=== PATIENT | female | born 1975 | race Caucasian/White ===

== ENCOUNTER → 2016-11-21 | Outpatient (REF) | payer BC ==
[~2016-11-21] MED LIST: /ESOM40CA PO; ACET500C PO; AMBI5TAB PO; AMIT50TA PO; ATEN25TA PO; MULTIVIT PO; TUMS500C PO; VITA2000 PO
== END ==
LOC: M SFHCWAGY 10:38
PROVIDERS: ATTEND Nurse Practitioner Family
DX: R87.615 Unsatisfactory cytologic smear of cervix (principal)

== ENCOUNTER → 2016-11-21 | Outpatient (CLI) | payer BC ==
--- NOTE | 2016-11-21 11:32 | REP ---
REASON: Menorrhagia. COMPARISON: 09/05/2010 Transvesical and transvaginal imaging was performed. The uterus measures 7.3 x 3.1 x 3.9 cm. The parenchymal echopattern is within normal limits, essentially unchanged from the prior exam. The endometrial echocomplex is smooth and unremarkable appearing measuring 5 mm in thickness. Incidental note is made of a nabothian cyst. Right ovary measures 3.1 x 1.3 x 2.6 cm and is within normal limits with an RI of 0.48. The left ovary measures 2 x 1.1 x 2.2 cm and is within normal limits with an RI of 0.57. Urinary bladder measures 6 x 9 x 3 cm. IMPRESSION: Essentially unremarkable pelvic ultrasonography.
== END ==
LOC: M WHC 09:34
PROVIDERS: ATTEND Nurse Practitioner Family
DX: N92.0 Excessive and frequent menstruation with regular cycle (principal)

== ENCOUNTER → 2017-01-14 | Outpatient (REF) | payer BC | LOC: M LAB REF 16:44 | PROVIDERS: ATTEND Internal Medicine Medical Oncology | DX: C18.9 Malignant neoplasm of colon, unspecified (principal) ==

== ENCOUNTER → 2019-05-14 | Outpatient (CLI) | payer BC ==
[~2019-05-14] MED LIST changes: -/ESOM40CA PO; +ACET-839 PO; +AMBI10TA PO; +MULTCAP PO; +NEXI1CAP3 PO; +NEXI40GR PO
--- NOTE | 2019-05-14 15:48 | REPMRS ---
Patient History The patient states she had a clinical breast exam in 04/2019. Patient has history of colorectal cancer at age 35 and is nulliparous. Family history of breast cancer in maternal aunt, colorectal cancer at age 60 in paternal uncle. No Hormone Replacement Therapy Digital Woman Screen Mammo: May 14, 2019 - Exam #: [id number] Bilateral CC and MLO view(s) were taken. Technologist: Nabila Cartagena, Technologist Prior study comparison: September 12, 2016, digital woman screen mammo performed at [facility]. September 05, 2010, digital bilateral screening mammo performed at [facility]. FINDINGS: The breast tissue is almost entirely fat. There has been no change in the appearance of the mammogram from the prior studies. There is no interval development of dominant mass, architectural distortion, or grouped microcalcification typical of malignancy. 3-D tomosynthesis shows no additional findings. Assessment: BI-RADS/ACR category 1 mammogram. Negative Mammogram. Recommendation Routine screening mammogram of both breasts in 1 year (for women over age 40). This patient's Lifetime Breast Cancer RIsk is estimated at 19.5 %. This mammogram was interpreted with the aid of an FDA-approved computer-aided dectection system. Electronically Signed By: Hair Eaton MD 05/14/19 [id number]
== END ==
LOC: M WHC 13:50
PROVIDERS: ATTEND Nurse Practitioner Family
DX: Z12.31 Encounter for screening mammogram for malignant neoplasm of breast (principal); Z85.038 Personal history of other malignant neoplasm of large intestine

== ENCOUNTER → 2019-05-14 | Outpatient (REF) | payer BC ==
[2019-05-19 14:29] LABS: HPV HYBRID CAPTURE II Negative (Negative)
== END ==
LOC: M SFHCWAGY 14:23
PROVIDERS: ATTEND Nurse Practitioner Family
DX: Z12.4 Encounter for screening for malignant neoplasm of cervix (principal)
CPT/HCPCS: 87624; G0123

== ENCOUNTER 2019-06-18 11:10 | Day surgery (SDC) | payer BC ==
[~2019-06-18] VITALS: Ht 170.2 cm; Wt 100.2 kg
[~2019-06-18 11:10] MED LIST changes: +NS 1,000 ML IV ONE
[2019-06-18] MEDS ORDERED: PROPOFOL 200 MG/20 ML VIAL As Ordered ONE (12:43)
[2019-06-18 14:06] VITALS: BP 143/74
--- NOTE | 2019-06-18 14:31 | ROOR ---
Patient Name: Laura Mcpherson Procedure Date: 06/18/2019 1:12 PM Date of : 1975 Age: 44 Room: [facility] Gender: Female Note Status: Finalized Procedure: Colonoscopy Indications: High risk colon cancer surveillance: Personal history of colon cancer, Last colonoscopy: January 2016, Patient had a sigmoid colectomy for cancer in 06/2011. Providers: Maulik Moon MD Referring MD: Kenny Quintanilla MD Requesting Provider: Medicines: Monitored Anesthesia Care Complications: No immediate complications. Procedure: Pre-Anesthesia Assessment: - Prior to the procedure, a History and Physical was performed, and patient medications and allergies were reviewed. The patient is competent. The risks and benefits of the procedure and the sedation options and risks were discussed with the patient. All questions were answered and informed consent was obtained. Patient identification and proposed procedure were verified by the physician, the nurse and the anesthesiologist in the procedure room. Mental Status Examination: alert and oriented. CV Examination: regular rate and rhythm. Prophylactic Antibiotics: The patient does not require prophylactic antibiotics. Prior Anticoagulants: The patient has taken no previous anticoagulant or antiplatelet agents. ASA Grade Assessment: II - A patient with mild systemic disease. After reviewing the risks and benefits, the patient was deemed in satisfactory condition to undergo the procedure. The anesthesia plan was to use monitored anesthesia care (MAC). Immediately prior to administration of medications, the patient was re-assessed for adequacy to receive sedatives. The heart rate, respiratory rate, oxygen saturations, blood pressure, adequacy of pulmonary ventilation, and response to care were monitored throughout the procedure. The physical status of the patient was re-assessed after the procedure. The Colonoscope was introduced through the anus and advanced to the cecum, identified by appendiceal orifice and ileocecal valve. The colonoscopy was performed without difficulty. The patient tolerated the procedure well. The quality of the bowel preparation was excellent. Findings: The perianal and digital rectal examinations were normal. There was evidence of a prior functional end-to-end colo-rectal anastomosis at 15 cm proximal to the anus. This was patent and was characterized by several kim in the bowel wall with some surrounding raised tissue. This was in the blind end of the rectum. This was biopsied with a cold forceps for histology. The exam was otherwise without abnormality. Impression: - Patent functional end-to-end colo-rectal anastomosis, characterized by several kim in the bowel wall with some surrounding raised tissue. Biopsied. - The examination was otherwise normal. Recommendation: - Discharge patient to home. - Resume previous diet. - Continue present medications. - Await pathology results. - Repeat colonoscopy in 3 years for surveillance. Maulik Moon MD Maulik Moon MD 06/18/2019 2:31:19 PM Electronically signed by Maulik Moon MD Number of Addenda: 0 Note Initiated On: 06/18/2019 1:12 PM Estimated Blood Loss: Estimated blood loss was minimal.
== END 2019-06-18 14:34 | disposition home or self-care (01) ==
LOC: M OPP 11:10
PROVIDERS: ATTEND Surgery
DX: Z12.11 Encounter for screening for malignant neoplasm of colon (principal); Z85.038 Personal history of other malignant neoplasm of large intestine; Z79.899 Other long term (current) drug therapy; Z88.1 Allergy status to other antibiotic agents; Z88.2 Allergy status to sulfonamides; Z88.8 Allergy status to other drugs, medicaments and biological substances

== ENCOUNTER → 2019-08-18 | Outpatient (REF) | payer BC ==
[~2019-08-18] MED LIST changes: -NS 1,000 ML IV ONE
== END ==
LOC: M LAB REF 17:24
PROVIDERS: ATTEND Family Medicine
DX: Z85.038 Personal history of other malignant neoplasm of large intestine (principal)

== ENCOUNTER → 2020-08-24 | Outpatient (REF) | payer BC | LOC: M LAB REF 16:18 | PROVIDERS: ATTEND Family Medicine | DX: Z85.038 Personal history of other malignant neoplasm of large intestine (principal) ==

== ENCOUNTER → 2020-08-29 | Outpatient (CLI) | payer SELFPAY | LOC: M LABSMTC 15:19 | PROVIDERS: ATTEND Pediatrics | DX: Z20.828 Contact with and (suspected) exposure to other viral communicable diseases (principal) ==

== ENCOUNTER 2020-10-07 12:08 | Emergency (ER) | payer BC ==
[~2020-10-07] VITALS: Ht 170.2 cm; Wt 101.7 kg
--- OUTSIDE RECORDS SUMMARY | 2020-10-07 12:15 | CCD | Continuity of Care Document ---
Author Author Laura QUINTANILLA M.D. Organization Unknown Address [address] [facility] [address] [place] [address] Phone [phone] Care Team Providers Care Global Technical Writer Name Role Phone Kenny Quintanilla MD [facility] [phone] Problems Active Problems Provider Date Malignant tumor of colon Onset: 00 Major depressive disorder Onset: 0 000 Insomnia Onset: Gastroesophageal reflux disease Onset: 0 Social History Type Date Description Comments Sex Unknown ETOH Use Denies alcohol use Tobacco Use Start: Unknown Patient has never smoked Allergies, Adverse Reactions, Alerts Active Allergies Reaction Severity Comments Date Sulfa light headed 03/15/2015 Levaquin upset stomach 03/15/2015 Medications Active Medications SIG Qnty Indications Ordering Provide r Date Amitriptyline HCL 75mg Tablets take one tablet by mouth at bedtime 90tabs Kenny Quintanilla M.D. 08/24/2020 Zyrtec Allergy 10mg Tablets 1 by mouth every bed time 30tabs R09.81 Kenny Quintanilla M.D. 07/23/2018 Flonase Allergy Relief 50mcg/Act Suspension 2 sprays per nostril every in the morning 29.7ml Z00.00 Kenny Quintanilla M.D. 10/08/2017 Acid Supervisor Fireworks Assembly 150mg Tablets by mouth twice a day 180tabs K21.9 Kenny Quintanilla M.D. 04/02/2017 Multi Adult Gummies Chewtabs 2 po qd Kenny Quintanilla M.D. 11/15/2015 Vitamin D3 1000Unit Capsules 1-2 by mouth every day 30caps Kenny Quintanilla M.D. 11/15/2015 Tylenol Extra Strength 500mg Table ts 2 pills po bid 180tabs Kenny Quintanilla M.D. 11/15/2015 Zolpidem Tartrate ER 12.5mg Tablet s ER take 1 tablet by mouth every night at bedtime as needed 30tabs G47. 00 Kenny Quintanilla M.D. 07/06/2015 Immunizations CPT Code Status Date Vaccine Lot # [id number] Given 06/23/2010 Influenza Virus Vaccine 30380 Refused 08/17/2019 Influenza Vaccin e Quadrivalent Preser/Antibiotic Free Im Use 21711 Refused 09/06/2014 Influenza Virus Vaccine 48167 Refused 09/25/2013 Influenza Virus Vaccine 39662 Refused 08/04/2012 Influenza Virus Vaccine 55218 Refused 09/23/2008 Adacel- Tetanus Diphtheria P ertussis (Age64 & Under) Vital Signs Date Vital Result Comment 08/24/2020 2:05pm BP Systolic 122 mmHg BP Diastolic 76 mmHg Heart Rate 70 /min Height 67 inches 5'7" Weight 224.00 lb BMI (Body Mass Index) 35.1 kg/m2 02/16/2020 2:09pm BP Systolic 130 mmHg BP Diastolic 74 mmHg Heart Rate 72 /min Height 67 inches 5'7" Weight 221.00 lb BMI (Body Mass Index) 34.6 kg/m2 Results Test Acquired Date Facility Test Result H/L Range Note Comprehensive Chem Profile 08/24/2020 [facility] Riding Double: [place] [address] [phone] Glucose 93 mg/dL 74 - 99 1 BUN 8 mg/dL 7 - 18 Creatinine 0.9 mg/dL 0.6 - 1.3 Sodium 140 mEq/L 136 - 145 Potassium 3.6 mEq/L 3.5 - 5.1 Chloride 103 mEq/L 98 - 107 Carbon Dioxide 29 mEq/L 21 - 32 Calcium 8.9 mg/dL 8.5 - 10.1 Alk. Phosphatase 82 mg/dL 46 - 116 Total Bilirubin 0.5 mg/dL 0.2 - 1.0 Ast (Sgot) 14 U/L Low 15 - 37 Alt (SGPT) 25 U/L 12 - 78 Albumin 3.8 g/dL 3.4 - 5.0 Total Protein 7.6 g/dL 6.4 - 8.2 A/G Ratio 1.00 CALC 1.00 - 1.90 GFR >= 60 mL/min >60 GFR >= 60 mL/min >60 2 Lipid Profile 08/24/2020 [facility] Riding Double: [place] [address] [phone] Cholesterol 199 mg/dL 131 - 200 Triglycerides 119 mg/dL 30 - 150 HDL Cholesterol 52 mg/dL 35 - 60 LDL (Calculated) 123 CALC 50 - 159 Laboratory test finding 08/24/2020 [facility] Riding Double: [place] [address] [phone] Thyroid Stimulating Hormone 0.70 uIU/mL 0.3 6 - 3.74 Laboratory test finding 08/24/2020 [facility] [address] [place], [place] [address] [phone] Carcinoembryonic Antigen < 0.5 NG/ML Normal <2.5 3 1 100-125 mg/dL PRE-DIABET ES/FASTING >126 mg/dL DIABETES/FASTING 2 CHRONIC KIDNEY DISEASE STAGI NG PER NKF STAGE I & II GFR >= 60 NORMAL TO MILDLY DECREASED STAGE III GFR 30-59 MODERATELY DECREASED STAGE IV GFR 15-29 SEVERELY DECREASED STAGE V GFR <15 VERY LITTLE GFR LEFT ESRD GFR <15 ON FACILITIES OPERATOR 3 THE CEA ASSAY IS PERFORMED O N THE AudioPixelsAUR BY CHEMILUMINESCENCE AND SHOULD NOT BE COMPARED INTERCHANGEABLY WITH OTHER METHODS. IT SHOULD NOT BE USED ALONE A SCREENING TEST OR DIAGNOSIS FOR THE PRESENCE OR ABSENCE OF MALIGNANT DISEASE. PREDICTIONS OF DISEASE RECURRENCE SHOULD NOT BE BASED SOLELY ON VALUES OBTAINED FROM SERIAL PATIENT SERUM VALUES. Procedures Date Code Description Status 06/18/2019 [id number] Colonoscopy Completed 05/14/2019 [id number] Mammogram Completed 02/14/2016 [id number] Colonoscopy Completed Medical Devices Description No Information Available Encounters Type Date Location Provider Dx Diagnosis Office Visit 08/24/2020 2:00p [facility] Quintanilla M.D. E78.00 Pure hypercholesterolemia, unspecified K21.9 Gastro-esophageal reflux dis ease without esophagitis J30.9 Allergic rhinitis, unspecifi ed R09.81 Nasal congestion Z85.038 Personal history of malignan t neoplasm of large intestine Assessments Date Code Description Provider 08/24/2020 E78.00 Pure hypercholesterolemia, unspe cified Kenny Quintanilla M.D. 08/24/2020 K21.9 Gastro-esophageal reflux disease without esophagitis Kenny Quintanilla M.D. 08/24/2020 J30.9 Allergic rhinitis, unspecified Princess Quintanilla M.D. 08/24/2020 R09.81 Nasal congestion Kenny Quintanilla M.D. 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 Plan of Treatment Future Appointment(s):* 02/22/2021 1:00 pm - Lab Schedule at [facility] * 02/22/2021 2:00 pm - Kenny Quintanilla M.D. at [facility] 08/24/2020 - Kenny Quintanilla M.D.* E78.00 Pure hypercholesterolemia, unspecified * K21.9 Gastro-esophageal reflux disease without esophagitis * J30.9 Allergic rhinitis, unspecified * R09.81 Nasal congestion * Z85.038 Personal history of malignant neoplasm of large intestine * * Comments:* 1. Hypercholesterolemia: Good control with diet alone. Patient will continue to watch diet and will follow positive lifestyle changes. We will monitor.2. Personal history of malignant neoplasm of large intestine: Recent colonoscopy [place] [address] Moon. Patient will have next colonoscopy in fall. Patient will call us in 1 week to follow up with CEA result. We will monitor.3. GERD: Doing well with OTC H2 gino, will continue.4. Allergic rhinitis: Generally doing well with Zyrtec and Flonase. Will continue to follow up.5. Nasal congestion: Appears to be controlled with medications.Ongoing cares: I am going to see her again in 6 months with CMP, lipids and TSH. If she has new problems or issues sooner she will let us know. Functional Status Description No Information Available Mental Status Description No Information Available Referrals Description No Information Available
--- OUTSIDE RECORDS SUMMARY | 2020-10-07 12:15 | CCD | Continuity of Care Document ---
Author Author Laura QUINTANILLA M.D. Organization Unknown Address [address] [facility] [address] [place] [address] Phone [phone] Care Team Providers Care Evaporator Operator Molasses Name Role Phone Kenny Quintanilla MD [facility] [phone] Problems Active Problems Provider Date Malignant tumor [...] 29.7ml Z00.00 Kenny Quintanilla M.D. 10/08/2017 Acid Tractor Driver 150mg Tablets by mouth twice a day [...] CPT Code Status Date Vaccine Lot # [id number] Given 06/23/2010 Influenza Virus Vaccine 65170 Refused 08/17/2019 Influenza Vaccin e Quadrivalent Preser/Antibiotic Free Im Use 19570 Refused 09/06/2014 Influenza Virus Vaccine 89169 Refused 09/25/2013 Influenza Virus Vaccine 25020 Refused 08/04/2012 Influenza Virus Vaccine 85015 Refused 09/23/2008 Adacel- Tetanus Diphtheria P ertussis [...] H/L Range Note Comprehensive Chem Profile 08/24/2020 [facility] Pbx Technician: [place] [address] [phone] Glucose 93 mg/dL 74 - 99 1 [...] 60 mL/min >60 2 Lipid Profile 08/24/2020 [facility] Pbx Technician: [place] [address] [phone] Cholesterol 199 mg/dL 131 - 200 Triglycerides 119 mg/dL 30 - 150 HDL Cholesterol 52 mg/dL 35 - 60 LDL (Calculated) 123 CALC 50 - 159 Laboratory test finding 08/24/2020 [facility] Pbx Technician: [place] [address] [phone] Thyroid Stimulating Hormone 0.70 uIU/mL 0.3 6 - 3.74 Laboratory test finding 08/24/2020 [facility] [address] [place] [address] [phone] Carcinoembryonic Antigen < 0.5 NG/ML Normal <2.5 3 1 100-125 mg/dL PRE-DIABET ES/FASTING >126 mg/dL DIABETES/FASTING 2 CHRONIC KIDNEY DISEASE STAGI NG PER NKF STAGE I & II GFR >= 60 NORMAL TO MILDLY DECREASED STAGE III GFR 30-59 MODERATELY DECREASED STAGE IV GFR 15-29 SEVERELY DECREASED STAGE V GFR <15 VERY LITTLE GFR LEFT ESRD GFR <15 ON EMERGENCY MEDICAL DISPATCHER 3 THE CEA ASSAY IS PERFORMED O N THE Cloud ContentAUR BY CHEMILUMINESCENCE AND SHOULD NOT BE COMPARED INTERCHANGEABLY WITH OTHER METHODS. IT SHOULD NOT BE USED ALONE A SCREENING TEST OR DIAGNOSIS FOR THE PRESENCE OR ABSENCE OF MALIGNANT DISEASE. PREDICTIONS OF DISEASE RECURRENCE SHOULD NOT BE BASED SOLELY ON VALUES OBTAINED FROM SERIAL PATIENT SERUM VALUES. Procedures Date Code Description Status 06/18/2019 [id number] Colonoscopy Completed 05/14/2019 [id number] Mammogram Completed 02/14/2016 [id number] Colonoscopy Completed Medical Devices Description No Information Available Encounters Type Date Location Provider Dx Diagnosis Office Visit 08/24/2020 2:00p [facility] Quintanilla M.D. E78.00 Pure hypercholesterolemia, [...] Quintanilla M.D. Plan of Treatment Future Appointment(s):* 10/04/2020 10:30 am - Kenny Quintanilla M.D. at [facility] * 02/22/2021 1:00 pm - Lab Schedule at [facility] * 02/22/2021 2:00 pm - Kenny Quintanilla M.D. at [facility] 08/24/2020 - Kenny Quintanilla M.D.* E78.00 [...]
--- OUTSIDE RECORDS SUMMARY | 2020-10-07 12:15 | CCD | Continuity of Care Document ---
Author Author Laura REAVES M.D. Organization Unknown Address [address] [facility] [address] [place] [address] Phone [phone] Care Team Providers Care Conference Concierge Name Role Phone Kenny Reaves MD [facility] [phone] Problems Active Problems Provider Date Malignant tumor [...] Indications Ordering Provide r Date Amitriptyline HCL 50mg Tablets take one tablet by mouth at bedtime 30tabs Kenny Reaves M.D. 09/30/2020 Zyrtec Allergy 10mg Tablets 1 by mouth every bed time 30tabs R09.81 Kenny Reaves M.D. 07/23/2018 Flonase Allergy Relief 50mcg/Act Suspension 2 sprays per nostril every in the morning 29.7ml Z00.00 Kenny Reaves M.D. 10/08/2017 Acid Body Presser 150mg Tablets by mouth twice a day 180tabs K21.9 Kenny Reaves M.D. 04/02/2017 Multi Adult Gummies Chewtabs 2 po qd Kenny Reaves M.D. 11/15/2015 Vitamin D3 1000Unit Capsules 1-2 by mouth every day 30caps Kenny Reaves M.D. 11/15/2015 Tylenol Extra Strength 500mg Table ts 2 pills po bid 180tabs Kenny Reaves M.D. 11/15/2015 Zolpidem Tartrate ER 12.5mg Tablet s ER take 1 tablet by mouth every night at bedtime as needed 30tabs G47. 00 Kenny Reaves M.D. 07/06/2015 History Medications Amitriptyline HCL 75mg Tablets take one tablet by mouth at bedtime 90tabs Kenny Reaves M.D. 08/24/2020 - 09/30/2020 Immunizations CPT Code Status Date Vaccine Lot # 50062 Given 06/23/2010 Influenza Virus Vaccine 35104 Refused 08/17/2019 Influenza Vaccin e Quadrivalent Preser/Antibiotic Free Im Use 13366 Refused 09/06/2014 Influenza Virus Vaccine 14371 Refused 09/25/2013 Influenza Virus Vaccine 46950 Refused 08/04/2012 Influenza Virus Vaccine 66735 Refused 09/23/2008 Adacel- Tetanus Diphtheria P ertussis (Age64 & Under) Vital Signs Date Vital Result Comment 10/04/2020 10:44am BP Systolic 124 mmHg BP Diastolic 70 mmHg Heart Rate 68 /min Height 67 inches 5'7" Weight 220.00 lb BMI (Body Mass Index) 34.5 kg/m2 08/24/2020 2:05pm BP Systolic 122 mmHg BP Diastolic 76 mmHg Heart Rate 70 /min Height 67 inches 5'7" Weight 224.00 lb BMI (Body Mass Index) 35.1 kg/m2 Results Test Acquired Date Facility Test Result H/L Range Note Comprehensive Chem Profile 08/24/2020 [facility] Associate Drafter: [place] [address] [phone] Glucose 93 mg/dL 74 - 99 1 [...] 60 mL/min >60 2 Lipid Profile 08/24/2020 [facility] Associate Drafter: [place] [address] [phone] Cholesterol 199 mg/dL 131 - 200 Triglycerides 119 mg/dL 30 - 150 HDL Cholesterol 52 mg/dL 35 - 60 LDL (Calculated) 123 CALC 50 - 159 Laboratory test finding 08/24/2020 [facility] Associate Drafter: [place] [address] [phone] Thyroid Stimulating Hormone 0.70 uIU/mL 0.3 6 - 3.74 Laboratory test finding 08/24/2020 [facility] [address] [place] [address] [phone] Carcinoembryonic Antigen < 0.5 NG/ML Normal <2.5 3 1 100-125 mg/dL PRE-DIABET ES/FASTING >126 mg/dL DIABETES/FASTING 2 CHRONIC KIDNEY DISEASE STAGI NG PER NKF STAGE I & II GFR >= 60 NORMAL TO MILDLY DECREASED STAGE III GFR 30-59 MODERATELY DECREASED STAGE IV GFR 15-29 SEVERELY DECREASED STAGE V GFR <15 VERY LITTLE GFR LEFT ESRD GFR <15 ON SALES TRAINING REPRESENTATIVE 3 THE CEA ASSAY IS PERFORMED O N THE mSellerR BY CHEMILUMINESCENCE AND SHOULD NOT BE COMPARED INTERCHANGEABLY WITH OTHER METHODS. IT SHOULD NOT BE USED ALONE A SCREENING TEST OR DIAGNOSIS FOR THE PRESENCE OR ABSENCE OF MALIGNANT DISEASE. PREDICTIONS OF DISEASE RECURRENCE SHOULD NOT BE BASED SOLELY ON VALUES OBTAINED FROM SERIAL PATIENT SERUM VALUES. Procedures Date Code Description Status 06/18/2019 [id number] Colonoscopy Completed 05/14/2019 [id number] Mammogram Completed 02/14/2016 [id number] Colonoscopy Completed Medical Devices Description No Information Available Encounters Type Date Location Provider Dx Diagnosis Office Visit 08/24/2020 2:00p [place] [facility] Re[facility] M.[facility] E78.00 Pure hypercholesterolemia, unspecified K21.9 Gastro-esophageal reflux dis ease without esophagitis J30.9 Allergic rhinitis, unspecifi ed R09.81 Nasal congestion Z85.038 Personal history of malignan t neoplasm of large intestine Assessments Date Code Description Provider 08/24/2020 E78.00 Pure hypercholesterolemia, unspe cified Kenny Reaves M.D. 08/24/2020 K21.9 Gastro-esophageal reflux disease without esophagitis Kenny Reaves M.D. 08/24/2020 J30.9 Allergic rhinitis, unspecified J louise Reaves M.D. 08/24/2020 R09.81 Nasal congestion Kenny Reaves M.D. 08/24/2020 Z85.038 Personal history of other malignant neoplasm of large intestine Kenny Reaves M.D. Plan of Treatment Future Appointment(s):* 02/22/2021 1:00 pm - Lab Schedule at [facility] * 02/22/2021 2:00 pm - Kenny Reaves M.D. at [facility] Functional Status Description No Information Available Mental Status Description No Information Available Referrals Description No Information Available
--- OUTSIDE RECORDS SUMMARY | 2020-10-07 12:16 | CCD | Continuity of Care Document ---
Author Author Laura REAVES M.D. Organization Unknown Address [address] [facility] [address] [place] [address] Phone [phone] Care Team Providers Care Peer Tutor Name Role Phone Kenny Reaves MD [facility] [phone] Problems Active Problems Provider Date Malignant tumor [...] SIG Qnty Indications Ordering Provide r Date Cipro HC 0.2-1% Suspension 3 ggts bid in both ears x 7 days 10ml Kenny Reaves M.D. 02/12/20 19 Zyrtec Allergy 10mg Tablets 1 by mouth every bed time 30tabs R09.81 Kenny Reaves M.D. 07/23/2018 Flonase Allergy Relief 50mcg/Act Suspension 2 sprays per nostril every in the morning 29.7ml Z00.00 Kenny Reaves M.D. 10/08/2017 Acid Catering Attendant 150mg Tablets by mouth twice a day [...] 30tabs G47. 00 Kenny Reaves M.D. 07/06/2015 Amitriptyline HCL 50mg Tablets take one tablet by mouth at bedtime 90tabs Kenny Reaves M.D. 03/15/2015 Immunizations CPT Code Status Date Vaccine Lot # 63052 Given 06/23/2010 Influenza Virus Vaccine 19118 Refused 08/17/2019 Influenza Vaccin e Quadrivalent Preser/Antibiotic Free Im Use 59569 Refused 09/06/2014 Influenza Virus Vaccine 81531 Refused 09/25/2013 Influenza Virus Vaccine 00814 Refused 08/04/2012 Influenza Virus Vaccine 66343 Refused 09/23/2008 Adacel- Tetanus Diphtheria P ertussis [...] Date Facility Test Result H/L Range Note Laboratory test finding 08/24/2020 [facility] Photostat Operator: [place] [address] [phone] TSH <pending> Laboratory test finding 08/24/2020 [facility] [address] [place] [address] [phone] Carcinoembryonic Antigen <pending> Procedures Date Code Description Status 06/18/2019 [id number] Colonoscopy Completed 05/14/2019 [id number] Mammogram Completed 02/14/2016 [id number] Colonoscopy Completed Medical Devices Description No Information Available Encounters Description No Information Available Assessments Description No Information Available Plan of Treatment No Information Available Functional Status Description No Information Available Mental Status Description No Information Available Referrals Description No Information Available
--- OUTSIDE RECORDS SUMMARY | 2020-10-07 12:16 | CCD | Continuity of Care Document ---
Author Author Laura QUINTANILLA M.D. Organization Unknown Address [address] [facility] [address] [place] [address] Phone [phone] Care Team Providers Care Curb Machine Operator Name Role Phone Kenny Quintanilla MD [facility] [phone] Problems Active Problems Provider Date Malignant tumor [...] 29.7ml Z00.00 Kenny Quintanilla M.D. 10/08/2017 [employer] Instructor 150mg Tablets by mouth twice a day [...] CPT Code Status Date Vaccine Lot # [id number] Given 06/23/2010 Influenza Virus Vaccine 56419 Refused 08/17/2019 Influenza Vaccin e Quadrivalent Preser/Antibiotic Free [place] Use [address]686 Refused 09/06/2014 Influenza Virus Vaccine 06932 Refused 09/25/2013 Influenza Virus Vaccine 69722 Refused 08/04/2012 Influenza Virus Vaccine 79964 Refused 09/23/2008 Adacel- Tetanus Diphtheria P ertussis [...] H/L Range Note Comprehensive Chem Profile 08/24/2020 [facility] Instructor: [place] [address] [phone] Glucose 93 mg/dL 74 - 99 1 [...] 60 mL/min >60 2 Lipid Profile 08/24/2020 [facility] Ems Instructor: [place] [address] [phone] Cholesterol 199 mg/dL 131 - 200 Triglycerides 119 mg/dL 30 - 150 HDL Cholesterol 52 mg/dL 35 - 60 LDL (Calculated) 123 CALC 50 - 159 Laboratory test finding 08/24/2020 [facility] Ems Instructor: [place] [address] [phone] Thyroid Stimulating Hormone 0.70 uIU/mL 0.3 6 - 3.74 Laboratory test finding 08/24/2020 [facility] [address] [place] [address] [phone] Carcinoembryonic Antigen <pending> 1 100-125 mg/dL PRE-DIABET ES/FASTING >126 mg/dL DIABETES/FASTING 2 CHRONIC KIDNEY DISEASE STAGI NG PER NKF STAGE I & II GFR >= 60 NORMAL TO MILDLY DECREASED STAGE III GFR 30-59 MODERATELY DECREASED STAGE IV GFR 15-29 SEVERELY DECREASED STAGE V GFR <15 VERY LITTLE GFR LEFT ESRD GFR <15 ON CLOTH BLEACHING RANGE OPERATOR CHIEF Procedures Date Code Description Status 06/18/2019 [id number] Colonoscopy Completed 05/14/2019 [id number] Mammogram Completed 02/14/2016 [id number] Colonoscopy Completed Medical Devices Description No Information Available Encounters Description No Information Available Assessments Date Code Description Provider 08/24/2020 E78.00 Pure hypercholesterolemia, unspe cified Kenny Quintanilla M.D. 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 08/24/2020 K21.9 Gastro-esophageal reflux disease without esophagitis Kenny Quintanilla M.D. 08/24/2020 J30.9 Allergic rhinitis, unspecified Princess Quintanilla M.D. 08/24/2020 R09.81 Nasal congestion Kenny Quintanilla M.D. Plan of Treatment 08/24/2020 - Kenny Quintanilla M.D.* E78.00 Pure hypercholesterolemia, unspecified * Z85.038 Personal history of malignant neoplasm of large intestine * K21.9 Gastro-esophageal reflux disease without esophagitis * J30.9 Allergic rhinitis, unspecified * R09.81 Nasal congestion * Functional Status Description No Information Available Mental Status Description No Information Available Referrals Description No Information Available
--- OUTSIDE RECORDS SUMMARY | 2020-10-07 12:16 | CCD ---
Author Author [facility] Organization [facility] Address Unknown Phone Unavailable Care Team Providers Care Water Safety Teacher Name Role Phone Alfred Quintanilla MD Unavailable Unavailable Alfred Quintanilla MD Unavailable Unavailable Alfred Quintanilla MD Unavailable Unavailable Alfred Quintanilla MD Unavailable Unavailable Alfred Quintanilla MD Unavailable Unavailable Alfred Quintanilla MD Unavailable Unavailable Alfred Quintanilla MD Unavailable Unavailable Alfred Quintanilla MD Unavailable Unavailable Alfred Quintanilla MD Unavailable Unavailable Alfred Quintanilla MD Unavailable Unavailable Alfred Quintanilla MD Unavailable Unavailable Alfred Quintanilla MD Unavailable Unavailable Alfred Quintanilla MD Unavailable Unavailable Alfred Quintanilla MD Unavailable Unavailable Alfred Quintanilla MD Unavailable Unavailable Alfred Quintanilla MD Unavailable Unavailable Alfred Quintanilla MD Unavailable Unavailable Alfred Quintanilla MD Unavailable Unavailable Alfred Quintanilla MD Unavailable Unavailable Alfred Quintanilla MD Unavailable Unavailable Alfred Quintanilla MD Unavailable Unavailable Alfred Quintanilla MD Unavailable Unavailable Alfred Quintanilla MD Unavailable Unavailable Alfred Quintanilla MD Unavailable Unavailable Alfred Quintanilla MD Unavailable Unavailable Alfred Quintanilla MD Unavailable Unavailable Alfred Quintanilla MD Unavailable Unavailable Alfred Quintanilla MD Unavailable Unavailable Socorro F Kenny MAGALLANES Unavailable Unavailable Socorro F Kenny MAGALLANES Unavailable Unavailable Alfred Quintanilla MD Unavailable Unavailable Alfred Quintanilla MD Unavailable Unavailable Alfred Quintainlla MD Unavailable Unavailable Alfred Quintanilla MD Unavailable Unavailable Alfred Quintanilla MD Unavailable Unavailable Alfred Quintanilla MD Unavailable Unavailable Alfred Quintanilla MD Unavailable Unavailable Alfred Quintanilla MD Unavailable Unavailable Alfred Quintanilla MD Unavailable Unavailable Alfred Quintanilla MD Unavailable Unavailable Alfred Quintanilla MD Unavailable Unavailable Alfred Quintanilla MD Unavailable Unavailable Socorro F Kenny MAGALLANES Unavailable Unavailable Socorro F Kenny MAGALLANES Unavailable Unavailable Socorro F Kenny MAGALLANES Unavailable Unavailable Socorro F Kenny MAGALLANES Unavailable Unavailable Alfred Quintanilla MD Unavailable Unavailable Alfred Quintanilla MD Unavailable Unavailable Alfred Quintanilla MD Unavailable Unavailable Alfred Quintanilla MD Unavailable Unavailable Alfred Quintanilla MD Unavailable Unavailable Alfred Quintanilla MD Unavailable Unavailable Alfred Quintanilla MD Unavailable Unavailable Alfred Quintanilla MD Unavailable Unavailable Alfred Quintanilla MD Unavailable Unavailable Alfred Quintanilla MD Unavailable Unavailable Alfred Quintanilla MD Unavailable Unavailable Alfred Quintanilla MD Unavailable Unavailable Alfred Quintanilla MD Unavailable Unavailable Alfred Quintanilla MD Unavailable Unavailable Alfred Quintanilla MD Unavailable Unavailable Alfred Quintanilla MD Unavailable Unavailable Alfred Quintanilla MD Unavailable Unavailable Alfred Quintanilla MD Unavailable Unavailable Alfred Quintanilla MD Unavailable Unavailable Alfred Quintanilla MD Unavailable Unavailable Alfred Quintanilla MD Unavailable Unavailable Alfred Quintanilla MD Unavailable Unavailable Alfred Quintanilla MD Unavailable Unavailable Alfred Quintanilla MD Unavailable Unavailable Alfred Quintanilla MD Unavailable Unavailable Alfred Quintanilla MD Unavailable Unavailable Alfred Quintanilla MD Unavailable Unavailable AMAURY, PREM PA Unavailable Unavailable AMAURY, PREM PA Unavailable Unavailable AMAURY, PREM PA Unavailable Unavailable AMAURY, PREM PA Unavailable Unavailable AMAURY, PREM PA Unavailable Unavailable AMAURY, PREM PA Unavailable Unavailable AMAURY, PREM PA Unavailable Unavailable AMAURY, PREM PA Unavailable Unavailable AMAURY, PREM PA Unavailable Unavailable AMAURY, PREM PA Unavailable Unavailable AMAURY, PREM PA Unavailable Unavailable AMAURY, PREM PA Unavailable Unavailable AMAURY, PREM PA Unavailable Unavailable AMAURY, PREM PA Unavailable Unavailable AMAURY, PREM PA Unavailable Unavailable AMAURY, PREM PA Unavailable Unavailable AMAURY, PREM PA Unavailable Unavailable AMAURY, PREM PA Unavailable Unavailable AMAURY, PREM PA Unavailable Unavailable AMAURY, PREM PA Unavailable Unavailable AMAURY, PREM PA Unavailable Unavailable AMAURY, PREM PA Unavailable Unavailable AMAURY, PREM PA Unavailable Unavailable AMAURY, PREM PA Unavailable Unavailable AMAURY, PREM PA Unavailable Unavailable AMAURY, PREM PA Unavailable Unavailable AMAURY, PREM PA Unavailable Unavailable AMAURY, PREM PA Unavailable Unavailable AMAURY, PREM PA Unavailable Unavailable AMAURY, PREM PA Unavailable Unavailable AMAURY, PREM PA Unavailable Unavailable AMAURY, PREM PA Unavailable Unavailable AMAURY, PREM PA Unavailable Unavailable AMAURY, PREM PA Unavailable Unavailable AMAURY, PREM PA Unavailable Unavailable AMAURY, PREM PA Unavailable Unavailable AMAURY, PREM PA Unavailable Unavailable AMAURY, PREM PA Unavailable Unavailable LETTIERE, A MARISOL PA Unavailable Unavailable LETTIERE, A MARISOL PA Unavailable Unavailable LETTIERE, A MARISOL PA Unavailable Unavailable LETTIERE, A MARISOL PA Unavailable Unavailable LETTIERE, A MARISOL PA Unavailable Unavailable LETTIERE, A MARISOL PA Unavailable Unavailable LETTIERE, A MARISOL PA Unavailable Unavailable LETTIERE, A MARISOL PA Unavailable Unavailable LETTIERE, A MARISOL PA Unavailable Unavailable LETTIERE, A MARISOL PA Unavailable Unavailable LETTIERE, A MARISOL PA Unavailable Unavailable LETTIERE, A MARISOL PA Unavailable Unavailable LETTIERE, A MARISOL PA Unavailable Unavailable LETTIERE, A MARISOL PA Unavailable Unavailable LETTIERE, A MARISOL PA Unavailable Unavailable LETTIERE, A MARISOL PA Unavailable Unavailable LETTIERE, A MARISOL PA Unavailable Unavailable LETTIERE, A MARISOL PA Unavailable Unavailable LETTIERE, A MARISOL PA Unavailable Unavailable LETTIERE, A MARISOL PA Unavailable Unavailable LETTIERE, A MARISOL PA Unavailable Unavailable LETTIERE, A MARISOL PA Unavailable Unavailable LETTIERE, A MARISOL PA Unavailable Unavailable LETTIERE, A MARISOL PA Unavailable Unavailable LETTIERE, A MARISOL PA Unavailable Unavailable LETTIERE, A MARISOL PA Unavailable Unavailable LETTIERE, A MARISOL PA Unavailable Unavailable LETTIERE, A MARISOL PA Unavailable Unavailable LETTIERE, A MARISOL PA Unavailable Unavailable Re-disclosure Warning The records that you are about to access may contain information from federally-assisted alcohol or drug abuse programs. If such information is present, then the following federally mandated warning applies: This information has been disclosed to you from records protected by federal confidentiality rules (42 CFR part 2). The federal rules prohibit you from making any further disclosure of this information unless further disclosure is expressly permitted by the written consent of the person to whom it pertains or as otherwise permitted by 42 CFR part 2. A general authorization for the release of medical or other information is NOT sufficient for this purpose. The Federal rules restrict any use of the information to criminally investigate or prosecute any alcohol or drug abuse patient.The records that you are about to access may contain highly sensitive health information, the redisclosure of which is protected by Article 27-F of the [facility] Public Health law. If you continue you may have access to information: Regarding HIV / AIDS; Provided by facilities licensed or operated by the [facility] Office of Mental Health; or Provided by the [facility] Office for People With Developmental Disabilities. If such information is present, then the following [facility] mandated warning applies: This information has been disclosed to you from confidential records which are protected by state law. State law prohibits you from making any further disclosure of this information without the specific written consent of the person to whom it pertains, or as otherwise permitted by law. Any unauthorized further disclosure in violation of state law may result in a fine or group home sentence or both. A general authorization for the release of medical or other information is NOT sufficient authorization for further disc losure. Family History Family Member Name Family Member Gender Family Member Status Date o f Status Description Data Source(s) Unknown Unknown Problem [facility] ([facility], [facility]) mgm Unknown Unknown Problem [facility] ([facility] Unknown Female Problem [facility] ([facility]) Unknown Female Problem [facility] ([facility]) Encounters Encounter Providers Location Date Indications Data Source(s ) Outpatient Attender: Kenny Rodgers 08/24 01:00:00 PM EST [facility] ([facility] ) Outpatient Attender: PREM torres 06/05/2020 02:15:00 PM EDT [facility] ([facility], [facility]) [facility] [id number] [place] [address] 05/16/2020 12:00:00 AM EDT eCW1 ([facility]) Outpatient Attender: Kenny Rodgers 02/15 02:00:00 PM EDT [facility] ([facility] ) Outpatient Attender: MARISOL Phillip Prim tim 10/04/2019 12:10:00 PM EST [facility] ([facility], [facility]) Outpatient Attender: MARISOL Phillip Prim tim 08/12/2019 03:35:00 PM EST [facility] ([facility], [facility]) Immunizations Vaccine Date Status Description Data Source(s) Influenza, injectable, MDCK, preservative free, zoran valent 08/17/2019 01:35:00 PM EST completed [facility] Medications Medication Brand Name Start Date Product Form Dose Route Admi nistrative Instructions Pharmacy Instructions Status Indications Reaction Description Data Source(s) Amitriptyline Hydrochloride 50 MG Oral Tablet Amitriptyline HCL 09/30/2020 12:00:00 AM EST ORAL active M EDENT ([facility]) Amitriptyline Hydrochloride 75 MG Oral Tablet Amitriptyline HCL 08/24/2020 12:00:00 AM EST ORAL completed [facility] ([facility]) Amoxicillin 875 MG / Clavulanate 125 MG Oral Tablet Am oxicillin/Clavulanate Potassium 06/05/2020 12:00:00 AM EDT ORAL active [facility] ([facility], [facility]) Prednisone 20 MG Oral Tablet Prednisone 10/04/2019 12:00:00 AM EST active [facility] ([facility], [facility]) Amoxicillin 875 MG / Clavulanate 125 MG Oral Tablet Am oxicillin/Clavulanate Potassium 10/04/2019 12:00:00 AM EST ORAL active [facility] ([facility], [facility]) Amoxicillin 875 MG / Clavulanate 125 MG Oral Tablet Am oxicillin/Clavulanate Potassium 08/12/2019 12:00:00 AM EST ORAL completed [facility] ([facility], [facility]) Insurance Providers Payer name Policy type / Coverage type Policy ID Covered libertarian ID Covered libertarian's relationship to bennett Policy Bennett Plan Information [place] 020/520 [id number] SP [id number] SELF PAY ONLY [id number] SP [id number] [place] BCBS B [id number] S W [id number] [place] 020/520 [id number] SP [id number] BCBS/[place] Commercial [id number] Self [id number] BS [place] Trad/[place] Commercial [id number] Self [id number] BCBS/[place] Commercial [id number] Self [id number] BC[employer]/[place] Commercial [id number] Self [id number] BCBS/[place] Commercial [id number] Self [id number] BCBS/[place] Commercial [id number] Self [id number] BCBS/[place] Commercial [id number] Self [id number] BCBS/[place] Commercial [id number] Self [id number] EXCELLUS BCBS B [id number] S [id number] BS [place] Trad/[place] Commercial 521 Self 521 [place] 020/520 [id number] SP [id number] [place] WATN PPO 302/307 [id number] SP [id number] [employer]LL[place] BCBS B [id number] S [id number] [place] WAT[place] PPO 302/307 [id number] SP [id number] [employer] [id number] SP [id number] BC/[place] Medigap Part B Self BC[place] Commercial Self EXCELLUS BCBS P [id number] S [id number] Results ID Date Data Source [id number] 08/29/2020 12:00:00 AM EST [facility] Name Value Range Interpretation Code Description Data Jessica rce(s) Supporting Document(s) 2019-nCoV RNA XXX LISBETH+probe-Imp [facility] This lab was ordered by [facility] and reported by [facility]. ID Date Data Source [id number] 08/24/2020 01:52:00 PM EST [facility] Name Value Range Interpretation Code Description Data Jessica rce(s) Supporting Document(s) Carcinoembryonic Ag [Mass/volume] in Serum or Plasma Laboratory nahid t result [facility] ([facility]) THE CEA ASSAY IS PERFORMED ON THE [employer] BY CHEMILUMINESCENCE AND SHOULD NOT BE COMPARED INTERCHANGEABLY WITH OTHER METHODS. IT SHOULD NOT BE USED ALONE A SCREENING TEST OR DIAGNOSIS FOR THE PRESENCE OR ABSENCE OF MALIGNANT DISEASE. PREDICTIONS OF DISEASE RECURRENCE SHOULD NOT BE BASED SOLELY ON VALUES OBTAINED FROM SERIAL PATIENT SERUM VALUES. ID Date Data Source [id number] 08/24/2020 01:52:00 PM EST [facility] ([facility] Name Value Range Interpretation Code Description Data Jessica rce(s) Supporting Document(s) Thyrotropin [Units/volume] in Serum or Plasma by Detec tion limit <= 0.05 mIU/L 0.70 uIU/mL 0.36-3.74 [facility] ([facility] ) ID Date Data Source [id number] 08/24/2020 01:52:00 PM EST [facility] ([facility] Name Value Range Interpretation Code Description Data Jessica rce(s) Supporting Document(s) Cholesterol [Mass/volume] in Serum or Plasma 199 mg/dL 131-200 [facility] ([facility]) Triglyceride [Mass/volume] in Serum or Plasma 119 mg/dL 30-150 [facility] ([facility]) Cholesterol in LDL [Mass/volume] in Serum or Plasma by calcu lation 123 CALC 50-159 [facility] ([facility]) Cholesterol in HDL [Mass/volume] in Serum or Plasma 52 mg/dL 35-60 [facility] ([facility]) ID Date Data Source [id number] 08/24/2020 01:52:00 PM EST [facility] ([facility] Name Value Range Interpretation Code Description Data Jessica rce(s) Supporting Document(s) Glucose [Mass/volume] in Serum or Plasma 93 mg/dL 74-99 [facility] ([facility]) 100-125 mg/dL PRE-DIABETES/FASTING >126 mg/dL DIABETES/FASTING Creatinine 0.9 mg/dL 0.6-1.3 [facility] ([facility]) Urea nitrogen [Mass/volume] in Serum or Plasma 8 mg/dL 7-18 [facility] ([facility]) Sodium [Moles/volume] in Serum or Plasma 140 meq/L 136-145 [facility] ([facility]) Chloride [Moles/volume] in Serum or Plasma 103 meq/L 98-107 [facility] ([facility]) Potassium [Moles/volume] in Serum or Plasma 3.6 meq/L 3.5-5.1 [facility] ([facility]) Calcium [Mass/volume] in Serum or Plasma 8.9 mg/dL 8.5-10.1 [facility] ([facility] [facility] Alkaline phosphatase isoenzyme [Units/volume] in Serum or Pl asma 82 mg/dL 46-116 [facility] ([facility]) Carbon dioxide, total [Moles/volume] in Serum or Plasma 29 meq/L 21 -32 [facility] ([facility]) Aspartate aminotransferase [Enzymatic activity/volume] in Serum or Plasma 14 U/L 15-37 [facility] ([facility] [facility] Total Bilirubin 0.5 mg/dL 0.2-1.0 [facility] ([facility]) Alanine aminotransferase [Enzymatic activity/volume] in Seru m or Plasma 25 U/L 12-78 [facility] ([facility]) Albumin [Mass/volume] in Serum or Plasma 3.8 g/dL 3.4-5.0 [facility] ([facility]) Proteinase 3 Ab [Units/volume] in Serum 7.6 g/dL 6.4-8.2 [facility] ([facility]) Glomerular filtration rate/1.73 sq M pre dicted among non-blacks [Volume Rate/Area] in Serum or Plasma by Creatinine-based formula (MDRD) Laboratory test result [facility] ([facility] ) A/G Ratio 1.00 CALC 1.00-1.90 [facility] ([place] [facility]) Glomerular filtration rate/1.73 sq M pre dicted among blacks [Volume Rate/Area] in Serum or Plasma by Creatinine-based formula (MDRD) Laboratory test result [facility] ([facility]) <content>CHRONIC KIDNEY DISEASE STAGING PER NKF</content>
<content></content>
<content>STAGE I & II GFR >= 60 NORMAL TO MILDLY DECREASED</content>
<content>STAGE III GFR 30-59 MODERATELY DECREASED</content>
<content>STAGE IV GFR 15-29 SEVERELY DECREASED</content>
<content>STAGE V GFR <15 VERY LITTLE GFR LEFT</content>
<content>ESRD GFR <15 ON FINISHING TRIMMER</content>
<content></content> ID Date Data Source [id number] 02/12/2020 11:47:00 AM [facility] Name Value Range Interpretation Code Description Data Jessica rce(s) Supporting Document(s) Thyrotropin [Units/volume] in Serum or Plasma by Detec tion limit <= 0.05 mIU/L 1.35 uIU/mL 0.36-3.74 [facility] ) ID Date Data Source [id number] 02/12/2020 11:47:00 AM EDT [facility] ([facility] Name Value Range Interpretation Code Description Data Jessica rce(s) Supporting Document(s) Cholesterol in HDL [Mass/volume] in Serum or Plasma 46 mg/dL 35-60 [facility] ([facility]) Cholesterol [Mass/volume] in Serum or Plasma 204 mg/dL 131-200 [facility]) Triglyceride [Mass/volume] in Serum or Plasma 137 mg/dL 30-150 [facility]) Cholesterol in LDL [Mass/volume] in Serum or Plasma by calcu lation 131 CALC 50-159 [facility]) ID Date Data Source [id number] 02/12/2020 11:47:00 AM EDT [facility] Name Value Range Interpretation Code Description Data Jessica rce(s) Supporting Document(s) Glucose [Mass/volume] in Serum or Plasma 81 mg/dL 74-99 [facility] ([facility]) 100-125 mg/dL PRE-DIABETES/FASTING >126 mg/dL DIABETES/FASTING Urea nitrogen [Mass/volume] in Serum or Plasma 10 mg/dL 7-18 [facility] ([facility]) Creatinine 0.8 mg/dL 0.6-1.3 [facility]) Chloride [Moles/volume] in Serum or Plasma 104 meq/L 98-107 [facility] ([facility]) Sodium [Moles/volume] in Serum or Plasma 141 meq/L 136-145 [facility] ([facility]) Potassium [Moles/volume] in Serum or Plasma 3.8 meq/L 3.5-5.1 [facility] ([facility]) Carbon dioxide, total [Moles/volume] in Serum or Plasma 31 meq/L 21 -32 [facility] ([facility]) Alkaline phosphatase isoenzyme [Units/volume] in Serum or Pl asma 83 mg/dL 46-116 [facility] ([facility]) Calcium [Mass/volume] in Serum or Plasma 8.9 mg/dL 8.5-10.1 [facility] ([facility]) Aspartate aminotransferase [Enzymatic activity/volume] in Serum or Plasma 18 U/L 15-37 [facility] ([facility] ) Alanine aminotransferase [Enzymatic activity/volume] in Seru m or Plasma 26 U/L 12-78 [facility] ([facility]) Total Bilirubin 0.4 mg/dL 0.2-1.0 [facility] ([facility]) A/G Ratio 1.09 CALC 1.00-1.90 [facility] ([facility]) Albumin [Mass/volume] in Serum or Plasma 3.7 g/dL 3.4-5.0 [facility] ([facility]) Proteinase 3 Ab [Units/volume] in Serum 7.1 g/dL 6.4-8.2 [facility] ([facility]) Glomerular filtration rate/1.73 sq M pre dicted among non-blacks [Volume Rate/Area] in Serum or Plasma by Creatinine-based formula (MDRD) Laboratory test [facility] ) Glomerular filtration rate/1.73 sq M pre dicted among blacks [Volume Rate/Area] in Serum or Plasma by Creatinine-based formula (MDRD) Laboratory test result [facility] ([facility]) <content>CHRONIC KIDNEY DISEASE STAGING PER NKF</content>
<content></content>
<content>STAGE I & II GFR >= 60 NORMAL TO MILDLY DECREASED</content>
<content>STAGE III GFR 30-59 MODERATELY DECREASED</content>
<content>STAGE IV GFR 15-29 SEVERELY DECREASED</content>
<content>STAGE V GFR <15 VERY LITTLE GFR LEFT</content>
<content>ESRD GFR <15 ON FINISHING TRIMMER</content>
<content></content> ID Date Data Source [id number] 02/12/2020 11:47:00 AM EDT [facility]) Name Value Range Interpretation Code Description Data Jessica rce(s) Supporting Document(s) Hematocrit [Volume Fraction] of Blood by Automated count 38.7 % 3 7.0-51.0 [facility] ([facility]) Erythrocytes [#/volume] in Blood by Automated count 4.51 x10*6/UL 4.2 0-6.30 [facility] [facility] Leukocytes [#/volume] in Blood by Automated count 5.9 x10*3/UL 4.1-10 .9 [facility] Hemoglobin [Mass/volume] in Blood 12.9 g/dL 12.0-18.0 [facility] ([facility]) MCV 85.8 fL 80.0-97.0 [facility] ([facility] [facility]) MCH 28.7 pg 26.0-32.0 [facility] [facility] MPV 8.8 FL 7.8-11.0 [facility] ([place] [facility]) Erythrocyte distribution width [Ratio] by Automated count 12.3 % 11.6-13.7 [facility] ([facility]) Platelets [#/volume] in Blood by Automated count 324 x10*3/UL 140-440 [facility] ([facility]) MCHC 33.4 g/dL 31.0-38.0 [facility] ([place] [facility]) Neut % 52.8 % 37.0-92.0 [facility] ([place] [facility]) Mid % 8.5 % 1.7-9.3 [facility] ([place] [facility]) Lymph % 38.7 % 10.0-58.5 [facility] ([place] [facility]) Lymph # 2.2 x10*3/UL 0.6-4.1 [facility] ([facility]) Neut # 3.1 x10*3/UL 2.0-7.8 [facility] ([facility] [facility] Mid # 0.6 x10*3/UL 0.1-0.6 [facility] ([place] [facility]) ID Date Data Source [id number] 08/18/2019 10:20:00 AM EST [facility] ([facility]) Name Value Range Interpretation Code Description Data Jessica rce(s) Supporting Document(s) Carcinoembryonic Ag [Mass/volume] in Serum or Plasma 0.7 ng/mL [facility] ([facility]) THE CEA ASSAY IS PERFORMED ON THE [employer] BY CHEMILUMINESCENCE AND SHOULD NOT BE COMPARED INTERCHANGEABLY WITH OTHER METHODS. IT SHOULD NOT BE USED ALONE A SCREENING TEST OR DIAGNOSIS FOR THE PRESENCE OR ABSENCE OF MALIGNANT DISEASE. PREDICTIONS OF DISEASE RECURRENCE SHOULD NOT BE BASED SOLELY ON VALUES OBTAINED FROM SERIAL PATIENT SERUM VALUES. ID Date Data Source [id number] 08/18/2019 10:19:00 AM EST [facility] ([facility] Name Value Range Interpretation Code Description Data Jessica rce(s) Supporting Document(s) Thyrotropin [Units/volume] in Serum or Plasma by Detec tion limit <= 0.05 mIU/L 1.85 uIU/mL 0.36-3.74 [facility] ([facility] ID Date Data Source [id number] 08/18/2019 10:19:00 AM EST [facility] ([facility] Name Value Range Interpretation Code Description Data Jessica rce(s) Supporting Document(s) Cholesterol [Mass/volume] in Serum or Plasma 246 mg/dL 131-200 [facility] ([facility]) Triglyceride [Mass/volume] in Serum or Plasma 164 mg/dL 30-150 [facility] ([facility]) Cholesterol in LDL [Mass/volume] in Serum or Plasma by calcu lation 162 CALC 50-159 [facility] ([facility]) Cholesterol in HDL [Mass/volume] in Serum or Plasma 51 mg/dL 35-60 [facility] ([facility]) ID Date Data Source [id number] 08/18/2019 10:19:00 AM EST [facility] ([facility]) Name Value Range Interpretation Code Description Data Jessica rce(s) Supporting Document(s) Glucose [Mass/volume] in Serum or Plasma 78 mg/dL 74-99 [facility] ([facility]) 100-125 mg/dL PRE-DIABETES/FASTING >126 mg/dL DIABETES/FASTING Potassium [Moles/volume] in Serum or Plasma 3.6 meq/L 3.5-5.1 [facility] ([facility]) Creatinine 0.9 mg/dL 0.6-1.3 [facility] Sodium [Moles/volume] in Serum or Plasma 141 meq/L 136-145 [facility] ([facility]) Urea nitrogen [Mass/volume] in Serum or Plasma 10 mg/dL 7-18 [facility] ([facility]) Carbon dioxide, total [Moles/volume] in Serum or Plasma 26 meq/L 21 -32 [facility] ([facility]) Chloride [Moles/volume] in Serum or Plasma 102 meq/L 98-107 [facility] ([facility]) Calcium [Mass/volume] in Serum or Plasma 9.8 mg/dL 8.5-10.1 [facility] ([facility]) Aspartate aminotransferase [Enzymatic activity/volume] in Serum or Plasma 26 U/L 15-37 [facility] ([facility] ) Alkaline phosphatase isoenzyme [Units/volume] in Serum or Pl asma 92 mg/dL 46-116 [facility] ([facility]) Total Bilirubin 0.3 mg/dL 0.2-1.0 [facility] ([facility]) Alanine aminotransferase [Enzymatic activity/volume] in Seru m or Plasma 44 U/L 12-78 [facility] ([facility]) Albumin [Mass/volume] in Serum or Plasma 3.8 g/dL 3.4-5.0 [facility] ([facility]) Proteinase 3 Ab [Units/volume] in Serum 7.5 g/dL 6.4-8.2 [facility] ([facility]) A/G Ratio 1.03 CALC 1.00-1.90 [facility] [facility]) Glomerular filtration rate/1.73 sq M pre dicted among blacks [Volume Rate/Area] in Serum or Plasma by Creatinine-based formula (MDRD) Laboratory test result [facility] ([facility] [facility]) <content>CHRONIC KIDNEY DISEASE STAGING PER NKF</content>
<content></content>
<content>STAGE I & II GFR >= 60 NORMAL TO MILDLY DECREASED</content>
<content>STAGE III GFR 30-59 MODERATELY DECREASED</content>
<content>STAGE IV GFR 15-29 SEVERELY DECREASED</content>
<content>STAGE V GFR <15 VERY LITTLE GFR LEFT</content>
<content>ESRD GFR <15 ON FINISHING TRIMMER</content>
<content></content> Glomerular filtration rate/1.73 sq M pre dicted among non-blacks [Volume Rate/Area] in Serum or Plasma by Creatinine-based formula (MDRD) Laboratory test result [facility] ([facility] ) ID Date Data Source [id number] 08/18/2019 08:31:00 AM EST [facility] ([facility]) Name Value Range Interpretation Code Description Data Jessica rce(s) Supporting Document(s) Hearing Evaluation [facility] Procedure Vital Signs ID Date Data Source UNK Name Value Range Interpretation Code Description Data Source(s) Body mass index (BMI) [Ratio] 34.5 kg/m2 34.5 k g/m2 [facility] ([facility]) Body weight 220.00 [lb_av] 220.00 [lb_av] [facility] ([facility]) Body height 67 [in_i] 67 [in_i] [facility] ([facility]) 5'7" Heart rate 68 /min 68 /min [facility] ([facility]) Diastolic blood pressure 70 mm[Hg] 70 mm[Hg] [facility] Systolic blood pressure 124 mm[Hg] 124 mm[Hg] [facility] ([facility]) Body mass index (BMI) [Ratio] 35.1 kg/m2 35.1 k g/m2 [facility] ([facility]) Body weight 224.00 [lb_av] 224.00 [lb_av] [facility] ([facility]) Body height 67 [in_i] 67 [in_i] [facility] 5'7" Heart rate 70 /min 70 /min [facility] ([facility]) Diastolic blood pressure 76 mm[Hg] 76 mm[Hg] [facility]) Systolic blood pressure 122 mm[Hg] 122 mm[Hg] [facility] ([facility]) Body mass index (BMI) [Ratio] 34.6 kg/m2 34.6 k g/m2 [facility] ([place] [facility], [facility]) Body height 67 [in_i] 67 [in_i] [facility] ([facility], [facility]) 5'7" Body weight 221.00 [lb_av] 221.00 [lb_av] [facility] ([facility], [facility]) Oxygen saturation in Arterial blood by Pulse oximetry 97 % 97 % [facility] [facility], [facility]) Respiratory rate 14 /min 14 /min [facility] ( [facility], [facility]) Heart rate 79 /min 79 /min [facility] ([facility], [facility]) Diastolic blood pressure 85 mm[Hg] 85 mm[Hg] [facility] ([place] [facility], [facility]) Systolic blood pressure 145 mm[Hg] 145 mm[Hg] [facility] ([place] [facility], [facility]) Body mass index (BMI) [Ratio] 34.6 kg/m2 34.6 k g/m2 [facility] Body weight 221.00 [lb_av] 221.00 [lb_av] [facility] ([facility]) Body height 67 [in_i] 67 [in_i] [facility] 5'7" Heart rate 72 /min 72 /min [facility] ([facility]) Diastolic blood pressure 74 mm[Hg] 74 mm[Hg] [facility]) Systolic blood pressure 130 mm[Hg] 130 mm[Hg] [facility] ([facility]) Body weight 211.00 [lb_av] 211.00 [lb_av] [facility] ([facility]) Body height 67 [in_i] 67 [in_i] [facility] ([facility]) 5'7" Body weight 95.710 kg 95.710 kg [facility] ([facility]) Body mass index (BMI) [Ratio] 33.0 kg/m2 33.0 k g/m2 [facility] ([facility]) Body mass index (BMI) [Ratio] 33.7 kg/m2 33.7 k g/m2 [facility] ([facility], [facility]) Body height 67 [in_i] 67 [in_i] [facility] ([facility], [facility]) 5'7" Body weight 215.00 [lb_av] 215.00 [lb_av] [facility] ([place] [facility], [facility]) Body temperature 98.0 [degF] 98.0 [degF] [facility] ([facility], [facility]) Oxygen saturation in Arterial blood by Pulse oximetry 98 % 98 % [facility] ([place] [facility], [facility]) Respiratory rate 16 /min 16 /min [facility] ( [place] [facility], [facility]) Heart rate 69 /min 69 /min [facility] ([facility], [facility]) Diastolic blood pressure 81 mm[Hg] 81 mm[Hg] [facility] ([place] [facility], [facility]) Systolic blood pressure 122 mm[Hg] 122 mm[Hg] [facility] [facility], [facility]) Body mass index (BMI) [Ratio] 35.1 kg/m2 35.1 k g/m2 [facility] Oxygen saturation in Arterial blood by Pulse oximetry 97 % 97 % [facility] Air Body weight 224.00 [lb_av] 224.00 [lb_av] [facility] ([facility]) Body height 67 [in_i] 67 [in_i] [facility] ([facility]) 5'7" Heart rate 82 /min 82 /min [facility] ([facility]) Diastolic blood pressure 70 mm[Hg] 70 mm[Hg] [facility] ([facility]) Systolic blood pressure 132 mm[Hg] 132 mm[Hg] [facility] ([facility]) Body mass index (BMI) [Ratio] 33.7 kg/m2 33.7 k g/m2 [facility] ([facility], [facility]) Body height 67 [in_i] 67 [in_i] [facility] ([facility], [facility]) 5'7" Body weight 215.00 [lb_av] 215.00 [lb_av] [facility] ([place] [facility], [facility]) Body temperature 98.2 [degF] 98.2 [degF] [facility] ([facility], [facility]) Oxygen saturation in Arterial blood by Pulse oximetry 99 % 99 % [facility] ([facility], [facility]) Respiratory rate 12 /min 12 /min [facility] ( [facility], [facility]) Heart rate 82 /min 82 /min [facility] ([facility], [facility]) Diastolic blood pressure 87 mm[Hg] 87 mm[Hg] [facility] ([facility], [facility]) Systolic blood pressure 136 mm[Hg] 136 mm[Hg] [facility] ([place] [facility], [facility])
[2020-10-07] MEDS ORDERED: ALPR0.25 (12:21)
[2020-10-07] MEDS ORDERED: NS 1,000 ML IV SCH (12:43)
[2020-10-07] MEDS ORDERED: ASPIRIN 81 MG CHEW TABLET PO ONE (12:45)
[2020-10-07 12:56] LABS: BASO % 0.2 % (0.0-1.0); EOS % 0.4 % (0.0-3.0); HEMATOCRIT 43.9 % (36.0-47.0); HEMOGLOBIN 13.9 g/dl (12.0-15.5); LYMPH % 22.3 % (24.0-44.0); MEAN CORPUSCULAR HEMOGLOBIN 28.2 pg (27.0-33.0); MEAN CORPUSCULAR HGB CONC 31.7 g/dl (32.0-36.5); MONO # 0.9 10^3/uL (0.0-0.8); NEUTROPHILS # 6.1 10^3/uL (1.5-8.5); NEUTROPHILS % 66.8 % (36.0-66.0); PLATELET COUNT, AUTOMATED 306 10^3/uL (150-450); RED BLOOD COUNT 4.93 10^6/uL (4.00-5.40); WHITE BLOOD COUNT 9.1 10^3/uL (4.0-10.0)
[2020-10-07 13:12] LABS: INR 0.98; PROTHROMBIN TIME 13.1 SECONDS (12.5-14.3)
--- OUTSIDE RECORDS SUMMARY | 2020-10-07 13:16 | CCD ---
Author Author [facility] Organization [facility] Address Unknown Phone Unavailable Care Team Providers Care Sales Planning Coordinator Name Role Phone Alfred Quintanilla MD Unavailable [...] Unavailable Socorro F Kenny MAGALLANES Unavailable Unavailable White F Kenny MAGALLANES Unavailable Unavailable Socorro F Kenny MAGALLANES Unavailable Unavailable Socorro F Kenny MAGALLANES Unavailable Unavailable Socorro F Kenny MAGALLANES Unavailable Unavailable Socorro F Kenny MAGALLANES Unavailable Unavailable White F Kenny MAGALLANES Unavailable Unavailable White F Kenny MAGALLANES Unavailable Unavailable Socorro F [...] is protected by Article 27-F of the [facility] Public Health law. If you continue you may have access to information: Regarding HIV / AIDS; Provided by facilities licensed or operated by the [facility] Office of Mental Health; or Provided by the [facility] Office for People With Developmental Disabilities. If such information is present, then the following [facility] mandated warning applies: This information has been [...] law may result in a fine or alf sentence or both. A general authorization for the release of medical or other information is NOT sufficient authorization for further disc losure. Family History Family Member Name Family Member Gender Family Member Status Date o f Status Description Data Source(s) Unknown Unknown Problem [facility] ([facility], [facility]) mgm Unknown Unknown Problem [facility] ([facility] Unknown Female Problem [facility] ([facility]) Unknown Female Problem [facility] ([facility]) Encounters Encounter Providers Location Date Indications Data Source(s ) Outpatient Attender: Kenny Rodgers 08/24 01:00:00 PM EST [facility] ([facility] ) Outpatient Attender: PREM torres 06/05/2020 02:15:00 PM EDT [facility] ([facility]) [facility] [address] [place] [address] 05/16/2020 12:00:00 AM EDT eCW1 ([facility]) Outpatient Attender: Kenny Rodgers 02/15 02:00:00 PM EDT [facility] ([facility] ) Outpatient Attender: MARISOL Phillip Prim tim 10/04/2019 12:10:00 PM EST [facility] ([facility], [facility]) Outpatient Attender: MARISOL Phillip Prim tim 08/12/2019 03:35:00 PM EST [facility] ([facility]) Immunizations Vaccine Date Status Description Data Source(s) Influenza, injectable, MDCK, preservative free, zoran valent 08/17/2019 01:35:00 PM EST completed [facility] Medications Medication Brand Name Start Date Product Form Dose Route Admi nistrative Instructions Pharmacy Instructions Status Indications Reaction Description Data Source(s) Amitriptyline Hydrochloride 50 MG Oral Tablet Amitriptyline HCL 09/30/2020 12:00:00 AM EST ORAL active M EDENT ([facility]) Amitriptyline Hydrochloride 75 MG Oral Tablet Amitriptyline HCL 08/24/2020 12:00:00 AM EST ORAL completed [facility] ([facility]) Amoxicillin 875 MG / Clavulanate 125 MG Oral Tablet Am oxicillin/Clavulanate Potassium 06/05/2020 12:00:00 AM EDT ORAL active [facility] ([facility], [facility]) Prednisone 20 MG Oral Tablet Prednisone 10/04/2019 12:00:00 AM EST active [facility] ([facility], [facility]) Amoxicillin 875 MG / Clavulanate 125 MG Oral Tablet Am oxicillin/Clavulanate Potassium 10/04/2019 12:00:00 AM EST ORAL active [facility] ([facility], [facility]) Amoxicillin 875 MG / Clavulanate 125 MG Oral Tablet Am oxicillin/Clavulanate Potassium 08/12/2019 12:00:00 AM EST ORAL completed [facility] ([facility] Insurance Providers Payer name Policy type / Coverage type Policy ID Covered democrat ID Covered democrat's relationship to bennett Policy Bennett Plan Information [place] 020/520 [id number] SP [id number] SELF PAY ONLY [id number] SP [id number] EXCELLUS BCBS B [id number] S W [id number] [place] 020/520 [id number] SP [id number] BCBS/[place] Commercial [id number] Self [id number] BS [place] Trad/[place] Commercial [id number] Self [id number] BCBS/[place] Commercial [id number] Self [id number] BCBS/[place] Commercial [id number] Self [id number] BCBS/[place] Commercial [id number] Self [id number] BCBS/[place] Commercial [id number] Self [id number] BCBS/[place] Commercial [id number] Self [id number] BCBS/[place] Commercial [id number] Self [id number] EXCELLUS BCBS B [id number] S [id number] BS [place] Trad/[place] Commercial 521 Self 521 [place] 020/520 [id number] SP [id number] [place] WATN PPO 302/307 [id number] SP [id number] EXCELLUS BCBS B [id number] S [id number] [place] WAT[place] PPO 302/307 [id number] SP [id number] [employer] [id number] SP [id number] BC/BS Of [place] Medigap Part B Self BC/[place] Commercial Self EXCELLUS BCBS P [id number] S [id number] Results ID Date Data Source [id number] 08/29/2020 12:00:00 AM EST [facility] Name Value Range Interpretation Code Description Data Jessica rce(s) Supporting Document(s) 2019-nCoV RNA XXX LISBETH+probe-Imp [facility] This lab was ordered by [facility] and reported by [facility]. ID Date Data Source [id number] 08/24/2020 01:52:00 PM EST [facility] ([facility] Name Value Range Interpretation Code Description Data Jessica rce(s) Supporting Document(s) Carcinoembryonic Ag [Mass/volume] in Serum or Plasma Laboratory nahid t result [facility] THE CEA ASSAY IS PERFORMED ON THE [employer] BY CHEMILUMINESCENCE AND SHOULD NOT BE COMPARED INTERCHANGEABLY WITH OTHER METHODS. IT SHOULD NOT BE USED ALONE A SCREENING TEST OR DIAGNOSIS FOR THE PRESENCE OR ABSENCE OF MALIGNANT DISEASE. PREDICTIONS OF DISEASE RECURRENCE SHOULD NOT BE BASED SOLELY ON VALUES OBTAINED FROM SERIAL PATIENT SERUM VALUES. ID Date Data Source [id number] 08/24/2020 01:52:00 PM EST [facility] ([facility] Name Value Range Interpretation Code Description Data Jessica rce(s) Supporting Document(s) Thyrotropin [Units/volume] in Serum or Plasma by Detec tion limit <= 0.05 mIU/L 0.70 uIU/mL 0.36-3.74 [facility] ID Date Data Source [id number] 08/24/2020 01:52:00 PM EST [facility] ([facility] Name Value Range Interpretation Code Description Data Jessica rce(s) Supporting Document(s) Cholesterol [Mass/volume] in Serum or Plasma 199 mg/dL 131-200 [facility] ([facility]) Triglyceride [Mass/volume] in Serum or Plasma 119 mg/dL 30-150 [facility] ([facility]) Cholesterol in LDL [Mass/volume] in Serum or Plasma by calcu lation 123 CALC 50-159 [facility] ([facility]) Cholesterol in HDL [Mass/volume] in Serum or Plasma 52 mg/dL 35-60 [facility] ([facility]) ID Date Data Source [id number] 08/24/2020 01:52:00 PM EST [facility] ([facility] Name Value Range Interpretation Code Description Data Jessica rce(s) Supporting Document(s) Glucose [Mass/volume] in Serum or Plasma 93 mg/dL 74-99 [facility] ([facility]) 100-125 mg/dL PRE-DIABETES/FASTING >126 mg/dL DIABETES/FASTING Creatinine 0.9 mg/dL 0.6-1.3 [facility] ([facility]) Urea nitrogen [Mass/volume] in Serum or Plasma 8 mg/dL 7-18 [facility] ([facility]) Sodium [Moles/volume] in Serum or Plasma 140 meq/L 136-145 [facility] ([facility]) Chloride [Moles/volume] in Serum or Plasma 103 meq/L 98-107 [facility] ([facility]) Potassium [Moles/volume] in Serum or Plasma 3.6 meq/L 3.5-5.1 [facility] ([facility]) Calcium [Mass/volume] in Serum or Plasma 8.9 mg/dL 8.5-10.1 [facility] ([facility] Alkaline phosphatase isoenzyme [Units/volume] in Serum or Pl asma 82 mg/dL 46-116 [facility] ([facility]) Carbon dioxide, total [Moles/volume] in Serum or Plasma 29 meq/L 21 -32 [facility] ([facility]) Aspartate aminotransferase [Enzymatic activity/volume] in Serum or Plasma 14 U/L 15-37 [facility] ([facility] Total Bilirubin 0.5 mg/dL 0.2-1.0 [facility] ([facility]) Alanine aminotransferase [Enzymatic activity/volume] in Seru m or Plasma 25 U/L 12-78 [facility] ([facility]) Albumin [Mass/volume] in Serum or Plasma 3.8 g/dL 3.4-5.0 [facility] ([facility]) Proteinase 3 Ab [Units/volume] in Serum 7.6 g/dL 6.4-8.2 [facility] ([facility]) Glomerular filtration rate/1.73 sq M pre dicted among non-blacks [Volume Rate/Area] in Serum or Plasma by Creatinine-based formula (MDRD) Laboratory test result [facility] ([facility] ) A/G Ratio 1.00 CALC 1.00-1.90 [facility]) Glomerular filtration rate/1.73 sq M pre dicted among blacks [Volume Rate/Area] in Serum or Plasma by Creatinine-based formula (MDRD) Laboratory test result [facility] ([facility]) <content>CHRONIC KIDNEY DISEASE STAGING PER NKF</content>
<content></content>
<content>STAGE I & II GFR >= 60 NORMAL TO MILDLY DECREASED</content>
<content>STAGE III GFR 30-59 MODERATELY DECREASED</content>
<content>STAGE IV GFR 15-29 SEVERELY DECREASED</content>
<content>STAGE V GFR <15 VERY LITTLE GFR LEFT</content>
<content>ESRD GFR <15 ON MOTION PICTURE SET GRIP</content>
<content></content> ID Date Data Source [id number] 02/12/2020 11:47:00 AM EDT [facility] ([facility]) Name Value Range Interpretation Code Description Data Jessica rce(s) Supporting Document(s) Thyrotropin [Units/volume] in Serum or Plasma by Detec tion limit <= 0.05 mIU/L 1.35 uIU/mL 0.36-3.74 [facility] ([facility] ) ID Date Data Source [id number] 02/12/2020 11:47:00 AM EDT [facility] ([facility]) Name Value Range Interpretation Code Description Data Jessica rce(s) Supporting Document(s) Cholesterol in HDL [Mass/volume] in Serum or Plasma 46 mg/dL 35-60 [facility] ([facility]) Cholesterol [Mass/volume] in Serum or Plasma 204 mg/dL 131-200 [facility] ([facility]) Triglyceride [Mass/volume] in Serum or Plasma 137 mg/dL 30-150 [facility] ([facility]) Cholesterol in LDL [Mass/volume] in Serum or Plasma by calcu lation 131 CALC 50-159 [facility] ([facility]) ID Date Data Source [id number] 02/12/2020 11:47:00 AM EDT [facility] ([facility]) Name Value Range Interpretation Code Description Data Jessica rce(s) Supporting Document(s) Glucose [Mass/volume] in Serum or Plasma 81 mg/dL 74-99 [facility] ([facility]) 100-125 mg/dL PRE-DIABETES/FASTING >126 mg/dL DIABETES/FASTING Urea nitrogen [Mass/volume] in Serum or Plasma 10 mg/dL 7-18 [facility] ([facility]) Creatinine 0.8 mg/dL 0.6-1.3 [facility] ([facility]) Chloride [Moles/volume] in Serum or Plasma 104 meq/L 98-107 [facility] ([facility]) Sodium [Moles/volume] in Serum or Plasma 141 meq/L 136-145 [facility] ([facility]) Potassium [Moles/volume] in Serum or Plasma 3.8 meq/L 3.5-5.1 [facility] ([facility]) Carbon dioxide, total [Moles/volume] in Serum or Plasma 31 meq/L 21 -32 [facility] ([facility]) Alkaline phosphatase isoenzyme [Units/volume] in Serum or Pl asma 83 mg/dL 46-116 [facility] ([facility]) Calcium [Mass/volume] in Serum or Plasma 8.9 mg/dL 8.5-10.1 [facility] ([facility]) Aspartate aminotransferase [Enzymatic activity/volume] in Serum or Plasma 18 U/L 15-37 [facility] ([facility] ) Alanine aminotransferase [Enzymatic activity/volume] in Seru m or Plasma 26 U/L 12-78 [facility] ([facility]) Total Bilirubin 0.4 mg/dL 0.2-1.0 [facility] ([facility]) A/G Ratio 1.09 CALC 1.00-1.90 [facility]) Albumin [Mass/volume] in Serum or Plasma 3.7 g/dL 3.4-5.0 [facility] ([facility]) Proteinase 3 Ab [Units/volume] in Serum 7.1 g/dL 6.4-8.2 [facility] ([facility]) Glomerular filtration rate/1.73 sq M pre dicted among non-blacks [Volume Rate/Area] in Serum or Plasma by Creatinine-based formula (MDRD) Laboratory test result [facility] ([facility] ) Glomerular filtration rate/1.73 sq M pre dicted among blacks [Volume Rate/Area] in Serum or Plasma by Creatinine-based formula (MDRD) Laboratory test result [facility] ([facility]) <content>CHRONIC KIDNEY DISEASE STAGING PER NKF</content>
<content></content>
<content>STAGE I & II GFR >= 60 NORMAL TO MILDLY DECREASED</content>
<content>STAGE III GFR 30-59 MODERATELY DECREASED</content>
<content>STAGE IV GFR 15-29 SEVERELY DECREASED</content>
<content>STAGE V GFR <15 VERY LITTLE GFR LEFT</content>
<content>ESRD GFR <15 ON MOTION PICTURE SET GRIP</content>
<content></content> ID Date Data Source [id number] 02/12/2020 11:47:00 AM EDT [facility] ([facility]) Name Value Range Interpretation Code Description Data Jessica rce(s) Supporting Document(s) Hematocrit [Volume Fraction] of Blood by Automated count 38.7 % 3 7.0-51.0 [facility] ([facility]) Erythrocytes [#/volume] in Blood by Automated count 4.51 x10*6/UL 4.2 0-6.30 [facility] ([facility]) Leukocytes [#/volume] in Blood by Automated count 5.9 x10*3/UL 4.1-10 .9 [facility] ([facility]) Hemoglobin [Mass/volume] in Blood 12.9 g/dL 12.0-18.0 [facility] ([facility]) MCV 85.8 fL 80.0-97.0 [facility]) MCH 28.7 pg 26.0-32.0 [facility]) MPV 8.8 FL 7.8-11.0 [facility] Erythrocyte distribution width [Ratio] by Automated count 12.3 % 11.6-13.7 [facility] ([facility]) Platelets [#/volume] in Blood by Automated count 324 x10*3/UL 140-440 [facility] ([facility]) MCHC 33.4 g/dL 31.0-38.0 [facility] ([facility]) Neut % 52.8 % 37.0-92.0 [facility] ([facility]) Mid % 8.5 % 1.7-9.3 [facility] ([facility]) Lymph % 38.7 % 10.0-58.5 [facility] ([facility]) Lymph # 2.2 x10*3/UL 0.6-4.1 [facility] ([facility]) Neut # 3.1 x10*3/UL 2.0-7.8 [facility] Mid # 0.6 x10*3/UL 0.1-0.6 [facility] ([facility]) ID Date Data Source [id number] 08/18/2019 10:20:00 AM EST [facility] Name Value Range Interpretation Code Description Data Jessica rce(s) Supporting Document(s) Carcinoembryonic Ag [Mass/volume] in Serum or Plasma 0.7 ng/mL [facility] ([facility]) THE CEA ASSAY IS PERFORMED ON THE [employer] BY CHEMILUMINESCENCE AND SHOULD NOT BE COMPARED INTERCHANGEABLY WITH OTHER METHODS. IT SHOULD NOT BE USED ALONE A SCREENING TEST OR DIAGNOSIS FOR THE PRESENCE OR ABSENCE OF MALIGNANT DISEASE. PREDICTIONS OF DISEASE RECURRENCE SHOULD NOT BE BASED SOLELY ON VALUES OBTAINED FROM SERIAL PATIENT SERUM VALUES. ID Date Data Source [id number] 08/18/2019 10:19:00 AM EST [facility] ([facility] Name Value Range Interpretation Code Description Data Jessica rce(s) Supporting Document(s) Thyrotropin [Units/volume] in Serum or Plasma by Detec tion limit <= 0.05 mIU/L 1.85 uIU/mL 0.36-3.74 [facility] ID Date Data Source [id number] 08/18/2019 10:19:00 AM EST [facility] Name Value Range Interpretation Code Description Data Jessica rce(s) Supporting Document(s) Cholesterol [Mass/volume] in Serum or Plasma 246 mg/dL 131-200 [facility] ([facility]) Triglyceride [Mass/volume] in Serum or Plasma 164 mg/dL 30-150 [facility] ([facility]) Cholesterol in LDL [Mass/volume] in Serum or Plasma by calcu lation 162 CALC 50-159 [facility] ([facility]) Cholesterol in HDL [Mass/volume] in Serum or Plasma 51 mg/dL 35-60 [facility] ([facility]) ID Date Data Source [id number] 08/18/2019 10:19:00 AM EST [facility] ([facility]) Name Value Range Interpretation Code Description Data Jessica rce(s) Supporting Document(s) Glucose [Mass/volume] in Serum or Plasma 78 mg/dL 74-99 [facility] ([facility]) 100-125 mg/dL PRE-DIABETES/FASTING >126 mg/dL DIABETES/FASTING Potassium [Moles/volume] in Serum or Plasma 3.6 meq/L 3.5-5.1 [facility] ([facility]) Creatinine 0.9 mg/dL 0.6-1.3 [facility] ([facility]) Sodium [Moles/volume] in Serum or Plasma 141 meq/L 136-145 [facility] ([facility]) Urea nitrogen [Mass/volume] in Serum or Plasma 10 mg/dL 7-18 [facility] ([facility]) Carbon dioxide, total [Moles/volume] in Serum or Plasma 26 meq/L 21 -32 [facility] ([facility]) Chloride [Moles/volume] in Serum or Plasma 102 meq/L 98-107 [facility] ([facility]) Calcium [Mass/volume] in Serum or Plasma 9.8 mg/dL 8.5-10.1 [facility] ([facility]) Aspartate aminotransferase [Enzymatic activity/volume] in Serum or Plasma 26 U/L 15-37 [facility] ([facility] ) Alkaline phosphatase isoenzyme [Units/volume] in Serum or Pl asma 92 mg/dL 46-116 [facility] ([facility]) Total Bilirubin 0.3 mg/dL 0.2-1.0 [facility] ([facility]) Alanine aminotransferase [Enzymatic activity/volume] in Seru m or Plasma 44 U/L 12-78 [facility] ([facility]) Albumin [Mass/volume] in Serum or Plasma 3.8 g/dL 3.4-5.0 [facility] ([facility]) Proteinase 3 Ab [Units/volume] in Serum 7.5 g/dL 6.4-8.2 [facility] ([facility]) A/G Ratio 1.03 CALC 1.00-1.90 [facility]) Glomerular filtration rate/1.73 sq M pre dicted among blacks [Volume Rate/Area] in Serum or Plasma by Creatinine-based formula (MDRD) Laboratory test result [facility] <content>CHRONIC KIDNEY DISEASE STAGING PER NKF</content>
<content></content>
<content>STAGE I & II GFR >= 60 NORMAL TO MILDLY DECREASED</content>
<content>STAGE III GFR 30-59 MODERATELY DECREASED</content>
<content>STAGE IV GFR 15-29 SEVERELY DECREASED</content>
<content>STAGE V GFR <15 VERY LITTLE GFR LEFT</content>
<content>ESRD GFR <15 ON MOTION PICTURE SET GRIP</content>
<content></content> Glomerular filtration rate/1.73 sq M pre dicted among non-blacks [Volume Rate/Area] in Serum or Plasma by Creatinine-based formula (MDRD) Laboratory test result [facility] ([facility] ) ID Date Data Source [id number] 08/18/2019 08:31:[address] [facility]) Name Value Range Interpretation Code Description Data Jessica rce(s) Supporting Document(s) Hearing Evaluation Laboratory test result [facility]) Procedure Vital Signs ID Date Data Source [id number] Name Value Range Interpretation Code Description Data Source(s) Body mass index (BMI) [Ratio] 34.5 kg/m2 34.5 k g/m2 [facility] ([facility]) Body weight 220.00 [lb_av] 220.00 [lb_av] [facility] ([facility]) Body height 67 [in_i] 67 [in_i] [facility]) 5'7" Heart rate 68 /min 68 /min [facility] ([facility]) Diastolic blood pressure 70 mm[Hg] 70 mm[Hg] [facility] ([facility]) Systolic blood pressure 124 mm[Hg] 124 mm[Hg] [facility]) Body mass index (BMI) [Ratio] 35.1 kg/m2 35.1 k g/m2 [facility] ([facility]) Body weight 224.00 [lb_av] 224.00 [lb_av] [facility] ([facility]) Body height 67 [in_i] 67 [in_i] [facility] ([facility]) 5'7" Heart rate 70 /min 70 /min [facility] ([facility]) Diastolic blood pressure 76 mm[Hg] 76 mm[Hg] [facility] ([facility]) Systolic blood pressure 122 mm[Hg] 122 mm[Hg] [facility] ([facility]) Body mass index (BMI) [Ratio] 34.6 kg/m2 34.6 k g/m2 [facility] ([facility], [facility]) Body height 67 [in_i] 67 [in_i] [facility] ([facility], [facility]) 5'7" Body weight 221.00 [lb_av] 221.00 [lb_av] [facility] T ([facility], [facility]) Oxygen saturation in Arterial blood by Pulse oximetry 97 % 97 % [facility] ([facility], [facility]) Respiratory rate 14 /min 14 /min [facility] ( [facility]) Heart rate 79 /min 79 /min [facility] ([facility], [facility]) Diastolic blood pressure 85 mm[Hg] 85 mm[Hg] [facility] ([facility], [facility]) Systolic blood pressure 145 mm[Hg] 145 mm[Hg] [facility] ([facility], [facility]) Body mass index (BMI) [Ratio] 34.6 kg/m2 34.6 k g/m2 [facility] Body weight 221.00 [lb_av] 221.00 [lb_av] [facility] ([facility]) Body height 67 [in_i] 67 [in_i] [facility] ([facility]) 5'7" Heart rate 72 /min 72 /min [facility] ([facility]) Diastolic blood pressure 74 mm[Hg] 74 mm[Hg] [facility]) Systolic blood pressure 130 mm[Hg] 130 mm[Hg] [facility] Body weight 211.00 [lb_av] 211.00 [lb_av] [facility] ([facility]) Body height 67 [in_i] 67 [in_i] [facility] ([facility]) 5'7" Body weight 95.710 kg 95.710 kg [facility] ([facility]) Body mass index (BMI) [Ratio] 33.0 kg/m2 33.0 k g/m2 [facility] ([facility]) Body mass index (BMI) [Ratio] 33.7 kg/m2 33.7 k g/m2 [facility] ([facility], [facility]) Body height 67 [in_i] 67 [in_i] [facility] ([facility], [facility]) 5'7" Body weight 215.00 [lb_av] 215.00 [lb_av] [facility] ([facility]) Body temperature 98.0 [degF] 98.0 [degF] [facility] [facility] ([facility], [facility]) Oxygen saturation in Arterial blood by Pulse oximetry 98 % 98 % [facility]) Respiratory rate 16 /min 16 /min [facility] ( [facility], [facility]) Heart rate 69 /min 69 /min [facility] ([facility], [facility]) Diastolic blood pressure 81 mm[Hg] 81 mm[Hg] [facility] ([facility], [facility]) Systolic blood pressure 122 mm[Hg] 122 mm[Hg] [facility]) Body mass index (BMI) [Ratio] 35.1 kg/m2 35.1 k g/m2 [facility] ([facility]) Oxygen saturation in Arterial blood by Pulse oximetry 97 % 97 % [facility] ([facility]) Air Body weight 224.00 [lb_av] 224.00 [lb_av] [facility] ([facility]) Body height 67 [in_i] 67 [in_i] [facility] ([facility]) 5'7" Heart rate 82 /min 82 /min [facility] ([facility]) Diastolic blood pressure 70 mm[Hg] 70 mm[Hg] [facility] ([facility]) Systolic blood pressure 132 mm[Hg] 132 mm[Hg] [facility] ([facility]) Body mass index (BMI) [Ratio] 33.7 kg/m2 33.7 k g/m2 [facility] ([facility], [facility]) Body height 67 [in_i] 67 [in_i] [facility] ([facility], [facility]) 5'7" Body weight 215.00 [lb_av] 215.00 [lb_av] [facility] ([facility], [facility]) Body temperature 98.2 [degF] 98.2 [degF] [facility] ([facility], [facility]) Oxygen saturation in Arterial blood by Pulse oximetry 99 % 99 % [facility] ([facility], [facility]) Respiratory rate 12 /min 12 /min [facility] ( [facility], [facility]) Heart rate 82 /min 82 /min [facility] ([facility], [facility]) Diastolic blood pressure 87 mm[Hg] 87 mm[Hg] [facility] ([facility], [facility]) Systolic blood pressure 136 mm[Hg] 136 mm[Hg] [facility] ([facility], [facility])
[2020-10-07 13:33] LABS: ALBUMIN 3.7 GM/DL (3.2-5.2); ALT/SGPT 33 U/L (12-78); BILIRUBIN,DIRECT 0.1 MG/DL (0.0-0.2); BILIRUBIN,TOTAL 0.7 MG/DL (0.2-1.0); BLOOD UREA NITROGEN 8 MG/DL (7-18); CALCIUM LEVEL 9.6 MG/DL (8.5-10.1); CARBON DIOXIDE LEVEL 29 MEQ/L (21-32); CHLORIDE LEVEL 105 MEQ/L (98-107); CK-MB VALUE MASS < 1.0 NG/ML (<3.6); CPK CREATINE PHOSPHOKINASE 26 U/L (26-192); CREATININE FOR GFR 0.87 MG/DL (0.55-1.30); GLOMERULAR FILTRATION RATE > 60.0 (>58); GLUCOSE, FASTING 91 MG/DL (70-100); MB/CK RELATIVE INDEX 3.85 (< OR =4); NT-PRO BNP 14 PG/ML (<125); POTASSIUM SERUM 3.2 MEQ/L (3.5-5.1); SODIUM LEVEL 140 MEQ/L (136-145); TOTAL PROTEIN 7.6 GM/DL (6.4-8.2); TROPONIN I < 0.02 NG/ML (< 0.10)
--- NOTE | 2020-10-07 13:42 | REP ---
INDICATION: CHEST PAIN. COMPARISON: 09/06/2006. TECHNIQUE: SINGLE PORTABLE AP VIEW OF THE CHEST WAS PERFORMED. FINDINGS: There is no acute infiltrate. There is mild discoid atelectasis in the right lung base with mild elevation of the right hemidiaphragm. The heart is normal in size. The mediastinal silhouette is unremarkable. IMPRESSION: Mild discoid atelectasis right lung base. No acute infiltrate. <Electronically signed by Jean-Pierre Irving > 10/07/20 [id number]
[2020-10-07 14:13] VITALS: BP 140/80
--- NOTE | 2020-10-07 18:13 | ECGEPIP ---
[facility] - ED Test Date: 2020-10-07 Pat Name: MARIMAR FLYNN Department: Room: - Gender: Female Stitcher Utility: melissa : 1975 Requested By: Mary Wray Order Number: [id number] Reading MD: Ronal Hart Measurements Intervals [place] Rate: 107 P: 53 ND: 169 QRS: 6 QRSD: 106 T: 42 QT: 282 QTc: 377 Interpretive Statements SINUS TACHYCARDIA LEFT ATRIAL ENLARGEMENT INCOMPLETE RIGHT BUNDLE BRANCH BLOCK BASELINE ARTIFACT AFFECTS INTERPRETATION NO PRIORS FOR COMPARISON Electronically Signed on 10-07-2020 18:13:00 EST by Ronal Hart
== END 2020-10-07 14:14 | disposition home or self-care (01) ==
LOC: M ED 12:08
DX: R00.2 Palpitations (principal); F41.9 Anxiety disorder, unspecified; K21.9 Gastro-esophageal reflux disease without esophagitis; Z79.899 Other long term (current) drug therapy; Z88.1 Allergy status to other antibiotic agents; Z88.2 Allergy status to sulfonamides; Z88.5 Allergy status to narcotic agent

== ENCOUNTER 2020-10-12 14:11 | Emergency (ER) | payer BC ==
[~2020-10-12] VITALS: Ht 170.2 cm; Wt 101.0 kg
[~2020-10-12 14:11] MED LIST changes: +ALPR0.25
--- OUTSIDE RECORDS SUMMARY | 2020-10-12 14:17 | CCD | Continuity of Care Document ---
Author Author Laura QUINTANILLA M.D. Organization Unknown Address [address] [facility] [address] [place] [address] Phone [phone] Care Team Providers Care Fisher Trammel Net Name Role Phone Kenny Quintanilla MD [facility] [phone] Problems Active Problems Provider Date Malignant tumor [...] SIG Qnty Indications Ordering Provide r Date Atenolol 25mg Tablets 1 by mouth every day 90tabs Kenny Quintanilla M.D. 10/10/2020 Sertraline HCL 25mg Tablets 1 by mouth every day 30tabs Kenny Quintanilla M.D. 10/04/2020 Xanax 0.25mg Tablets 1 tab by mouth twice a day as needed anxiety 10tabs Kenny Quintanilla M.D. 08/2021 Amitriptyline HCL 50mg Tablets take one tablet by mouth at bedtime 30tabs Kenny Quintanilla M.D. 09/30/2020 Zyrtec Allergy 10mg Tablets 1 by mouth every bed time 30tabs R09.81 Kenny Quintanilla M.D. 07/23/2018 Flonase Allergy Relief 50mcg/Act Suspension 2 sprays per nostril every in the morning 29.7ml Z00.00 Kenny Quintanilla M.D. 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 00 Kenny Quintanilla M.D. 07/06/2015 History Medications Amitriptyline HCL 75mg Tablets take one tablet by mouth at bedtime 90tabs Kenny Quintanilla M.D. 08/24/2020 - 09/30/2020 Immunizations CPT Code Status Date Vaccine Lot # 47839 Given 06/23/2010 Influenza Virus Vaccine 05601 Refused 08/17/2019 Influenza Vaccin e Quadrivalent Preser/Antibiotic Free Im Use 08768 Refused 09/06/2014 Influenza Virus Vaccine 23770 Refused 09/25/2013 Influenza Virus Vaccine 76481 Refused 08/04/2012 Influenza Virus Vaccine 92070 Refused 09/23/2008 Adacel- Tetanus Diphtheria P ertussis (Age64 & Under) Vital Signs Date Vital Result Comment 10/10/2020 9:36am BP Systolic 142 mmHg BP Diastolic 84 mmHg Heart Rate 88 /min Height 67 inches 5'7" Weight 220.00 lb O2 % BldC Oximetry 98 % BMI (Body Mass Index) 34.5 kg/m2 10/04/2020 10:44am BP Systolic 124 mmHg BP Diastolic 70 mmHg Heart Rate 68 /min Height 67 inches 5'7" Weight 220.00 lb BMI (Body Mass Index) 34.5 kg/m2 Results Test Acquired Date Facility Test Result H/L Range Note CBC With Differential 10/07/[address] [id number] [phone] White Blood Count 9.1 10 Normal 4.0-10.0 Red Blood Count 4.93 10 Normal 4.00-5.40 Hemoglobin 13.9 g/dL Normal 12.0-15.5 Hematocrit 43.9 % Normal 36.0-47.0 Mean Corpuscular Volume 89.0 fl Normal 80.0-96.0 Mean Corpuscular Hemoglobin 28.2 pg Normal 27.0-33.0 Mean Corpuscular HGB Conc 31.7 g/dL Low 32.0-36.5 Red Cell Distribution Width 12.3 % Normal 11.5-14.5 Platelet Count, Automated 306 10 Normal 150-450 Neutrophils % 66.8 % High 36.0-66.0 Lymph % 22.3 % Low 24.0-44.0 [place] % 10.0 % High 0.0-5.0 Eos % 0.4 % Normal 0.0-3.0 Baso % 0.2 % Normal 0.0-1.0 Immature Granulocyte % 0.3 % Normal 0-3.0 Nucleated Red Blood Cell % 0.0 % Normal 0-0 Neutrophils # 6.1 10 Normal 1.5-8.5 Lymph # 2.0 10 Normal 1.5-5.0 [place] # 0.9 10 High 0.0-0.8 Eos # 0.0 10 Normal 0.0-0.5 Baso # 0.0 10 Normal 0.0-0.2 Prothrombin Time/Inr 10/07/2020 [facility] enter [address] [place] [address] [phone] Prothrombin Time 13.1 seconds Normal 12.5-14.3 Inr 0.98 Normal 1 Cardiac Marker Panel 10/07/2020 [facility] [address] [place] [address] [phone] CPK Creatine Phosphokinase 26 U/L Normal 26-19 2 CK-MB Value Mass < 1.0 NG/ML Normal <3.6 MB/CK Relative Index 3.85 Normal < Or =4 2 Troponin I < 0.02 NG/ML Normal < 0.10 3 Liver Profile 10/07/2020 [facility] nter [address] [place] [address] [phone] Ast/Sgot 11 U/L Normal 7-37 Alt/SGPT 33 U/L Normal 12-78 Alkaline Phosphatase 102 U/L Normal 45-117 Bilirubin,Total 0.7 mg/dL Normal 0.2-1.0 Bilirubin,Direct 0.1 mg/dL Normal 0.0-0.2 Total Protein 7.6 GM/DL Normal 6.4-8.2 Albumin 3.7 GM/DL Normal 3.2-5.2 Albumin/Globulin Ratio 0.9 Low 1.2-2.2 Basic Metabolic Profile 10/07/[address] [id number] [phone] Glucose, Fasting 91 mg/dL Normal 70-100 Blood Urea Nitrogen 8 mg/dL Normal 7-18 Creatinine For GFR 0.87 mg/dL Normal 0.55-1.30 Glomerular Filtration Rate > 60.0 Normal >58 4 Sodium Level 140 mEq/L Normal 136-145 Potassium Serum 3.2 mEq/L Low 3.5-5.1 Chloride Level 105 mEq/L Normal 98-107 Carbon Dioxide Level 29 mEq/L Normal 21-32 Anion Gap 6 mEq/L Low 8-16 Calcium Level 9.6 mg/dL Normal 8.5-10.1 Laboratory test finding 10/07/[address] [id number] [phone] NT-Pro BNP 14 pg/mL Normal <125 Comprehensive Chem Profile 08/24/2020 [facility] [place] [facility] Boiler Riveter: Dr Alber Cee [place], [place] [id number] [phone] Glucose 93 mg/dL 74 - 99 5 BUN 8 mg/dL 7 - 18 Creatinine [...] mL/min >60 GFR >= 60 mL/min >60 6 Lipid Profile 08/24/2020 [facility] Boiler Riveter: [place] [address] [phone] Cholesterol 199 mg/dL 131 - 200 Triglycerides 119 mg/dL 30 - 150 HDL Cholesterol 52 mg/dL 35 - 60 LDL (Calculated) 123 CALC 50 - 159 Laboratory test finding 08/24/2020 [facility] Boiler Riveter: Dr Alber Cee [place], [place] [id number] [phone] Thyroid Stimulating Hormone 0.70 uIU/mL 0.3 6 - 3.74 Laboratory test finding 08/24/2020 [facility] [address] [place], [place] 6[address] [phone] Carcinoembryonic Antigen < 0.5 NG/ML Normal <2.5 7 1 THERAPUTIC HUMAN INR VALUES INDICATIONS NORMAL RANGES PROPHYLAXIS/TREATMENT OF: VENOUS THROMBOSIS 2.0-3.0 PULMONARY EMBOLISM 2.0-3.0 PREVENTION OF SYSTEMIC EMBOLISM FROM: TISSUE HEART VALVES 2.0-3.0 ACUTE MYOCARDIAL INFARCTION 2.0-3.0 VALVULAR HEART DISEASE 2.0-3.0 ATRIAL FIBRILLATION 2.0-3.0 MECHANICAL VALVES(HIGH RISK) 2.5-3.5 RECURRENT MYOCARDIAL INFARCTION 2.5-3.5 2 DIAGNOSIS CRITERIA MMB ng/ml Relative Index (RI) NON-AMI < or = 5 N/A [place] ZONE > 5 < or = 4 AMI > 5 > 4 3 Troponin I Reference Interva l for Siemens [place] LOCI: 99th Percentile= 0.00-0.045 ng/ml Risk Stratification: <= 0.10 ng/ml Decreased Risk for Adverse Clinical Events. 0.10-1.50 ng/ml Increased Risk for Adv erse Clinical Events. Evaluation of additional criterion and/or repeat testing in 2-6 hours is suggested to rule out myocardial damage. >= 1.50 ng/ml Indicative of Myocardial Injury. 4 Units are mL/min/1.73 m2 Chronic Kidney Disease Staging per NKF: Stage I & II GFR >=60 Normal to Mildly Decreased Stage III GFR 30-59 Moderately Decreased Stage IV GFR 15-29 Severely Decreased Stage V GFR <15 Very Little GFR Left ESRD GFR <15 on RADIATOR CORE TESTER 5 100-125 mg/dL PRE-DIABET ES/FASTING >126 mg/dL DIABETES/FASTING 6 CHRONIC KIDNEY DISEASE STAGI NG PER NKF STAGE I & II GFR >= 60 NORMAL TO MILDLY DECREASED STAGE III GFR 30-59 MODERATELY DECREASED STAGE IV GFR 15-29 SEVERELY DECREASED STAGE V GFR <15 VERY LITTLE GFR LEFT ESRD GFR <15 ON RADIATOR CORE TESTER 7 THE CEA ASSAY IS PERFORMED O N THE PillPackAUR BY CHEMILUMINESCENCE AND SHOULD NOT BE COMPARED INTERCHANGEABLY WITH OTHER METHODS. IT SHOULD NOT BE USED ALONE A SCREENING TEST OR DIAGNOSIS FOR THE PRESENCE OR ABSENCE OF MALIGNANT DISEASE. PREDICTIONS OF DISEASE RECURRENCE SHOULD NOT BE BASED SOLELY ON VALUES OBTAINED FROM SERIAL PATIENT SERUM VALUES. Procedures Date Code Description Status 06/18/2019 [id number] Colonoscopy Completed 05/14/2019 [id number] Mammogram Completed 02/14/2016 [id number] Colonoscopy Completed Medical Devices Description No Information Available Encounters Type Date Location Provider Dx Diagnosis Office Visit 10/04/2020 10:30a [facility] PE[facility] Quintanilla M.D. R25.1 Tremor, unspecified F39 Unspecified mood [affective] disorder G47.00 Insomnia, unspecified Office Visit 08/24/2020 2:[facility]p [facility] E78.00 Pure hypercholesterolemia, unspecified K21.9 Gastro-esophageal reflux dis ease without esophagitis J30.9 Allergic rhinitis, unspecifi ed R09.81 Nasal congestion Z85.038 Personal history of malignan t neoplasm of large intestine Assessments Date Code Description Provider 10/10/2020 R00.2 Palpitations Kenny Quintanilla M.D. 10/10/2020 F41.9 Anxiety disorder, unspecified Mirza Quintanilla M.D. 10/10/2020 R25.1 Tremor, unspecified Kenny reynolds M.D. 10/04/2020 R25.1 Tremor, unspecified Kenny reynolds M.D. 10/04/2020 F39 Unspecified mood [affective] dis order Kenny Quintanilla M.D. 10/04/2020 G47.00 Insomnia, unspecified Kenny steward M.D. 08/24/2020 E78.00 Pure hypercholesterolemia, unspe cified Kenny Quintanilla M.D. 08/24/2020 K21.9 Gastro-esophageal reflux disease without esophagitis Kenny Quintanilla M.D. 08/24/2020 J30.9 Allergic rhinitis, unspecified J louise Quintanilla M.D. 08/24/2020 R09.81 Nasal congestion Kenny Quintanilla M.D. 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 Plan of Treatment Future Appointment(s):* 02/22/2021 1:00 pm - Lab Schedule at [facility] * 02/22/2021 2:00 pm - Kenny Quintanilla M.D. at [facility] 10/10/2020 - Kenny Quintanilla M.D.* R00.2 Palpitations * F41.9 Anxiety disorder, unspecified * R25.1 Tremor, unspecified * * Comments:* 1. Palpitations: Discussed about this in detail. Asymptomatic today. Heart rate is stable. I will start her on Atenolol 25 mg today for 1 week and will see how she does. She did well on atenolol before. She has history of mitral valve prolapse, although there is no recurrence, but we will obtain an echocardiogram for further evaluation. Depending on the result we will discuss about this with the Cardiology.2. Anxiety disorder: I have discussed about her symptoms in detail with the patient and her mother. It appears to be anxiety plays a big role regarding her symptoms. She was extensively evaluated in the ER and they did not find any abnormalities like heart failure or heart attack. She also sees a counselor. I have encouraged her to start taking half tablet of sertraline if her symptoms do not improve with the use of atenolol for 1 week. We will monitor.3. Tremor: related to above issues, she describes this as internal and is not seen externally. It is upsetting to her and we will work up and treat above in hopes of getting her relief.4. Hypokalemia: I will start her on potassium 10 mEq, which she will take with food. We will monitor.Ongoing cares: I am going to see her again as scheduled. If she has new problems or issues sooner she will let us know. Functional Status Description No Information Available Mental Status Description No Information Available Referrals Refer to Reason for Referral Status Appt Date [facility] CARDIAC ECHO WITH DOPPLER DX : PALPITATIONS NO PRIOR AUTH REQ PER [facility] AT [facility]. CALL REF# [id number] Sent [id number] Jacinto [address] [place] [id number] [phone]
--- OUTSIDE RECORDS SUMMARY | 2020-10-12 14:18 | CCD | Continuity of Care Document ---
Author Author Laura QUINTANILLA M.D. Organization Unknown Address [address] [facility] [address] [place] [address] Phone [phone] Care Team Providers Care Automobile Designer Name Role Phone Kenny Quintanilla MD [facility] [phone] Problems Active Problems Provider Date Malignant tumor [...] SIG Qnty Indications Ordering Provide r Date Sertraline HCL 25mg Tablets 1 by mouth [...] 29.7ml Z00.00 Kenny Quintanilla M.D. 10/08/2017 Acid Evp Business Development 150mg Tablets by mouth twice a day [...] CPT Code Status Date Vaccine Lot # [id number] Given 06/23/2010 Influenza Virus Vaccine 19208 Refused 08/17/2019 Influenza Vaccin e Quadrivalent Preser/Antibiotic Free Im Use 66730 Refused 09/06/2014 Influenza Virus Vaccine 77047 Refused 09/25/2013 Influenza Virus Vaccine 78396 Refused 08/04/2012 Influenza Virus Vaccine 32650 Refused 09/23/2008 Adacel- Tetanus Diphtheria P ertussis [...] H/L Range Note CBC With Differential 10/07/[address] [address] [phone] White Blood Count 9.1 10 Normal 4.0-10.0 [...] 36.0-66.0 Lymph % 22.3 % Low 24.0-44.0 [place] % 10.0 % High 0.0-5.0 Eos % 0.4 % Normal 0.0-3.0 Baso % 0.2 % Normal 0.0-1.0 Immature Granulocyte % 0.3 % Normal 0-3.0 Nucleated Red Blood Cell % 0.0 % Normal 0-0 Neutrophils # 6.1 10 Normal 1.5-8.5 Lymph # 2.0 10 Normal 1.5-5.0 [place] # 0.9 10 High 0.0-0.8 Eos # 0.0 10 Normal 0.0-0.5 Baso # 0.0 10 Normal 0.0-0.2 Prothrombin Time/Inr 10/07/2020 [facility] enter [address] [place] [address] [phone] Prothrombin Time 13.1 seconds Normal 12.5-14.3 Inr 0.98 Normal 1 Cardiac Marker Panel 10/07/2020 [facility] enter [address] [place] [address] [phone] CPK Creatine Phosphokinase 26 U/L Normal 26-19 2 CK-MB Value Mass < 1.0 NG/ML Normal <3.6 MB/CK Relative Index 3.85 Normal < Or =4 2 Troponin I < 0.02 NG/ML Normal < 0.10 3 Liver Profile 10/07/2020 [facility] nter [address] [place] [address] [phone] Ast/Sgot 11 U/L Normal 7-37 Alt/SGPT 33 U/L Normal 12-78 Alkaline Phosphatase 102 U/L Normal 45-117 Bilirubin,Total 0.7 mg/dL Normal 0.2-1.0 Bilirubin,Direct 0.1 mg/dL Normal 0.0-0.2 Total Protein 7.6 GM/DL Normal 6.4-8.2 Albumin 3.7 GM/DL Normal 3.2-5.2 Albumin/Globulin Ratio 0.9 Low 1.2-2.2 Basic Metabolic Profile 10/07/[address] [id number] [phone] Glucose, Fasting 91 mg/dL Normal 70-100 Blood [...] mg/dL Normal 8.5-10.1 Laboratory test finding 10/07/[address] 9160471 [phone] NT-Pro BNP 14 pg/mL Normal <125 Comprehensive Chem Profile 08/24/2020 [place] [facility] Exercise Scientist: [place] [address] [phone] Glucose 93 mg/dL 74 - 99 5 [...] 60 mL/min >60 6 Lipid Profile 08/24/2020 [facility] Exercise Scientist: [place] [address] [phone] Cholesterol 199 mg/dL 131 - 200 Triglycerides 119 mg/dL 30 - 150 HDL Cholesterol 52 mg/dL 35 - 60 LDL (Calculated) 123 CALC 50 - 159 Laboratory test finding 08/24/2020 [place] [facility] Exercise Scientist: [place] [address] [phone] Thyroid Stimulating Hormone 0.70 uIU/mL 0.3 6 - 3.74 Laboratory test finding 08/24/2020 [facility] [address] [place] [address] [phone] Carcinoembryonic Antigen < 0.5 NG/ML Normal <2.5 [...] Troponin I Reference Interva l for Siemens [place] LOCI: 99th Percentile= 0.00-0.045 ng/ml Risk Stratification: [...] Little GFR Left ESRD GFR <15 on SOLIDWORKS MECHANICAL DESIGNER 5 100-125 mg/dL PRE-DIABET ES/FASTING >126 mg/dL DIABETES/FASTING 6 CHRONIC KIDNEY DISEASE STAGI NG PER NKF STAGE I & II GFR >= 60 NORMAL TO MILDLY DECREASED STAGE III GFR 30-59 MODERATELY DECREASED STAGE IV GFR 15-29 SEVERELY DECREASED STAGE V GFR <15 VERY LITTLE GFR LEFT ESRD GFR <15 ON SOLIDWORKS MECHANICAL DESIGNER 7 THE CEA ASSAY IS PERFORMED O N THE mySkinAUR BY CHEMILUMINESCENCE AND SHOULD NOT BE COMPARED INTERCHANGEABLY WITH OTHER METHODS. IT SHOULD NOT BE USED ALONE A SCREENING TEST OR DIAGNOSIS FOR THE PRESENCE OR ABSENCE OF MALIGNANT DISEASE. PREDICTIONS OF DISEASE RECURRENCE SHOULD NOT BE BASED SOLELY ON VALUES OBTAINED FROM SERIAL PATIENT SERUM VALUES. Procedures Date Code Description Status 06/18/2019 [id number] Colonoscopy Completed 05/14/2019 [id number] Mammogram Completed 02/14/2016 [id number] Colonoscopy Completed Medical Devices Description No Information Available Encounters Type Date Location Provider Dx Diagnosis Office Visit 08/24/2020 2:00p [facility] E78.00 Pure hypercholesterolemia, unspecified K21.9 Gastro-esophageal reflux dis ease without esophagitis J30.9 Allergic rhinitis, unspecifi ed R09.81 Nasal congestion Z85.038 Personal history of malignan t neoplasm of large intestine Assessments Date Code Description Provider 10/04/2020 R25.1 Tremor, unspecified Kenny reynolds M.D. [...] Quintanilla M.D. Plan of Treatment Future Appointment(s):* 10/18/2020 1:20 pm - STACY Price JR at [facility] * 02/22/2021 1:00 pm - [facility] * 02/22/2021 2:00 pm - Kenny Quintanilla M.D. at [facility] 10/04/2020 - Kenny Quintanilla M.D.* R25.1 Tremor, unspecified * F39 Unspecified mood [affective] disorder * G47.00 Insomnia, unspecified * * Comments:* 1. Tremor: I have prescribed her low-dose Xanax today, which she will take as needed for her anxiety. She was educated about controlled substances (Xanax) and should be careful about usage, which she verbalized understanding. We will monitor.2. Mood affective disorder: Appears to be secondary to decreased level of serotonin and also could be seasonal. We discussed about starting her on low-dose sertraline daily for which patient agreed. We also discussed possible side effects as well as advantage of sertraline. Patient is on amitriptyline, which also will help to increase serotonin level. She is advised not take sertraline and zolpidem together. We will see if her moods get better with sertraline. We will monitor.3. Insomnia: Good result with the use of Ambien daily. She is advised not take sertraline and zolpidem together. We will monitor.4. GERD: Stable. We will monitor.5. Colon cancer: Last CEA undetectable. Will continue to follow up with Dr. Moon. We will monitor.Ongoing cares: I am going to see her again in 6 weeks with no labs. If she has new problems or issues sooner she will let us know. Functional Status Description No Information Available Mental Status Description No Information Available Referrals Description No Information Available
--- OUTSIDE RECORDS SUMMARY | 2020-10-12 14:18 | CCD | Continuity of Care Document ---
Author Author Laura QUINTANILLA M.D. Organization Unknown Address [address] [facility] [address] [place] [address] Phone [phone] Care Team Providers Care Claims Adjustor Name Role Phone Kenny Quintanilla MD [facility] [phone] Problems Active Problems Provider Date Malignant tumor [...] 29.7ml Z00.00 Kenny Quintanilla M.D. 10/08/2017 [employer] 150mg Tablets by mouth twice a day [...] CPT Code Status Date Vaccine Lot # 79303 Given 06/23/2010 Influenza Virus Vaccine 37219 Refused 08/17/2019 Influenza Vaccin e Quadrivalent Preser/Antibiotic Free [place] Use [address]28 Refused 09/06/2014 Influenza Virus Vaccine 00877 Refused 09/25/2013 Influenza Virus Vaccine 49484 Refused 08/04/2012 Influenza Virus Vaccine 91423 Refused 09/23/2008 Adacel- Tetanus Diphtheria P ertussis [...] H/L Range Note CBC With Differential 10/07/[address] [address] [phone] White Blood Count 9.1 10 Normal 4.0-10.0 [...] 36.0-66.0 Lymph % 22.3 % Low 24.0-44.0 [place] % 10.0 % High 0.0-5.0 Eos % 0.4 % Normal 0.0-3.0 Baso % 0.2 % Normal 0.0-1.0 Immature Granulocyte % 0.3 % Normal 0-3.0 Nucleated Red Blood Cell % 0.0 % Normal 0-0 Neutrophils # 6.1 10 Normal 1.5-8.5 Lymph # 2.0 10 Normal 1.5-5.0 [place] # 0.9 10 High 0.0-0.8 Eos # 0.0 10 Normal 0.0-0.5 Baso # 0.0 10 Normal 0.0-0.2 Prothrombin Time/Inr 10/07/2020 [facility] [address] [place] [address] [phone] Prothrombin Time 13.1 seconds Normal 12.5-14.3 Inr 0.98 Normal 1 Cardiac Marker Panel 10/07/2020 [facility] [address] [place] [address] [phone] CPK Creatine Phosphokinase 26 U/L Normal 26-19 2 CK-MB Value Mass < 1.0 NG/ML Normal <3.6 MB/CK Relative Index 3.85 Normal < Or =4 2 Troponin I < 0.02 NG/ML Normal < 0.10 3 Liver Profile 10/07/2020 [facility] [address]ter [address] [place] [address] [phone] Ast/Sgot 11 U/L Normal 7-37 Alt/SGPT 33 U/L Normal 12-78 Alkaline Phosphatase 102 U/L Normal 45-117 Bilirubin,Total 0.7 mg/dL Normal 0.2-1.0 Bilirubin,Direct 0.1 mg/dL Normal 0.0-0.2 Total Protein 7.6 GM/DL Normal 6.4-8.2 Albumin 3.7 GM/DL Normal 3.2-5.2 Albumin/Globulin Ratio 0.9 Low 1.2-2.2 Basic Metabolic Profile 10/07/[address] [address] [phone] Glucose, Fasting 91 mg/dL Normal 70-100 Blood [...] mg/dL Normal 8.5-10.1 Laboratory test finding 10/07/[address] [address] [phone] NT-Pro BNP 14 pg/mL Normal <125 Comprehensive Chem Profile 08/24/2020 [facility]: Dr Alber Cee [place] [id number] [phone] Glucose 93 mg/dL 74 - 99 5 [...] 60 mL/min >60 6 Lipid Profile 08/24/2020 [facility]: [place] [address] [phone] Cholesterol 199 mg/dL 131 - 200 Triglycerides 119 mg/dL 30 - 150 HDL Cholesterol 52 mg/dL 35 - 60 LDL (Calculated) 123 CALC 50 - 159 Laboratory test finding 08/24/2020 [facility]: [place] [address] [phone] Thyroid Stimulating Hormone 0.70 uIU/mL 0.3 6 - 3.74 Laboratory test finding 08/24/2020 [facility] [address] [place] [address] [phone] Carcinoembryonic Antigen < 0.5 NG/ML Normal <2.5 [...] Troponin I Reference Interva l for [employer] LOCI: 99th Percentile= 0.00-0.045 ng/ml Risk Stratification: [...] Little GFR Left ESRD GFR <15 on RECREATION PROGRAMMER 5 100-125 mg/dL PRE-DIABET ES/FASTING >126 mg/dL DIABETES/FASTING 6 CHRONIC KIDNEY DISEASE STAGI NG PER NKF STAGE I & II GFR >= 60 NORMAL TO MILDLY DECREASED STAGE III GFR 30-59 MODERATELY DECREASED STAGE IV GFR 15-29 SEVERELY DECREASED STAGE V GFR <15 VERY LITTLE GFR LEFT ESRD GFR <15 ON RECREATION PROGRAMMER 7 THE CEA ASSAY IS PERFORMED O N THE Dr. T[place] BY CHEMILUMINESCENCE AND SHOULD NOT BE COMPARED INTERCHANGEABLY WITH OTHER METHODS. IT SHOULD NOT BE USED ALONE A SCREENING TEST OR DIAGNOSIS FOR THE PRESENCE OR ABSENCE OF MALIGNANT DISEASE. PREDICTIONS OF DISEASE RECURRENCE SHOULD NOT BE BASED SOLELY ON VALUES OBTAINED FROM SERIAL PATIENT SERUM VALUES. Procedures Date Code Description Status 06/18/2019 [id number] Colonoscopy Completed 05/14/2019 [id number] Mammogram Completed 02/14/2016 [id number] Colonoscopy Completed Medical Devices Description No Information Available Encounters Type Date Location Provider Dx Diagnosis Office Visit 08/24/2020 2:00p [facility] Kenny Quintanilla M.D. E78.00 Pure hypercholesterolemia, unspecified K21.9 [...] 1:20 pm - STACY Price JR at [facility] * 02/22/2021 1:00 pm - [facility] * 02/22/2021 2:00 pm - Kenny Quintanilla M.D. at [facility] 10/04/2020 - Kenny Quintanilla M.D.* [...]
--- OUTSIDE RECORDS SUMMARY | 2020-10-12 14:18 | CCD ---
Author Author [facility] Organization [facility] Address Unknown Phone Unavailable Care Team Providers Care Middleware Systems Architect Name Role Phone Alfred Quintanilla MD Unavailable [...] A MARISOL PA Unavailable Unavailable LETTIERE, A AMRISOL PA Unavailable Unavailable LETTIERE, A MARISOL PA [...] is protected by Article 27-F of the [facility] Public Health law. If you continue you may have access to information: Regarding HIV / AIDS; Provided by facilities licensed or operated by the [facility] Office of Mental Health; or Provided by the [facility] Office for People With Developmental Disabilities. If such information is present, then the following [facility] mandated warning applies: This information has been [...] law may result in a fine or fpc sentence or both. A general authorization for the release of medical or other information is NOT sufficient authorization for further disc losure. Family History Family Member Name Family Member Gender Family Member Status Date o f Status Description Data Source(s) Unknown Unknown Problem [facility] ([facility]) mgm Unknown Unknown Problem [facility] Unknown Female Problem [facility] ([facility]) Unknown Female Problem [facility] ([facility]) Encounters Encounter Providers Location Date Indications Data Source(s ) Outpatient Attender: Kenny Rodgers 10/04 09:30:00 AM EST [facility] ([facility] ) Outpatient Attender: Kenny Rodgers 08/24 01:00:00 PM EST [facility] ([facility] ) Outpatient Attender: PREM Martin ry 06/05/2020 02:15:00 PM EDT [facility] ([facility]) [facility] [address] [id number] 05/16/2020 12:00:00 AM EDT eCW1 ([facility]) Outpatient Attender: Kenny Rodgers 02/15 02:00:00 PM EDT [facility] ([facility] ) Outpatient Attender: MARISOL Phillip Prim tim 10/04/2019 12:10:00 PM EST [facility] ([facility]) Immunizations Vaccine Date Status Description Data Source(s) Influenza, injectable, MDCK, preservative free, zoran valent 08/17/2019 01:35:00 PM EST completed [facility] Medications Medication Brand Name Start Date Product Form Dose Route Admi nistrative Instructions Pharmacy Instructions Status Indications Reaction Description Data Source(s) Atenolol 25 MG Oral Tablet Atenolol 10/10/2020 12:00:00 AM EST ORAL active [facility] ([facility]) Alprazolam 0.25 MG Oral Tablet [Xanax] Xanax 10/04/2020 12:00:00 AM EST ORAL active [facility] ([facility]) Sertraline 25 MG Oral Tablet Sertraline HCL 10/04/2020 12:00:00 AM EST ORAL active [facility] ([facility]) Amitriptyline Hydrochloride 50 MG Oral Tablet Amitriptyline HCL 09/30/2020 12:00:00 AM EST ORAL active M EDENT ([facility]) Amitriptyline Hydrochloride 75 MG Oral Tablet Amitriptyline HCL 08/24/2020 12:00:00 AM EST ORAL completed [facility] ([facility]) Amoxicillin 875 MG / Clavulanate 125 MG Oral Tablet Am oxicillin/Clavulanate Potassium 06/05/2020 12:00:00 AM EDT ORAL active [facility] ([facility]) Prednisone 20 MG Oral Tablet Prednisone 10/04/2019 12:00:00 AM EST active [facility] ([facility]) Amoxicillin 875 MG / Clavulanate 125 MG Oral Tablet Am oxicillin/Clavulanate Potassium 10/04/2019 12:00:00 AM EST ORAL active [facility] ([facility], [facility]) Amoxicillin 875 MG / Clavulanate 125 MG Oral Tablet Am oxicillin/Clavulanate Potassium 08/12/2019 12:00:00 AM EST ORAL completed [facility] ([facility]) Insurance Providers Payer name Policy type / Coverage type Policy ID Covered green party ID Covered green party's relationship to bennett Policy Bennett Plan Information [place] 020/ [id number] SP [id number] [place] [id number] SP [id number] SELF PAY ONLY [id number] SP [id number] EXCELLUS BCBS B [id number] S W [id number] [place] [id number] SP [id number] BCBS/Excellus Commercial [id number] Self [id number] BS [place] Trad/[place] Commercial [id number] Self [id number] BCBS/[place] Commercial [id number] Self [id number] BCBS/[place] Commercial [id number] Self [id number] BCBS/[place] Commercial [id number] Self [id number] BCBS/[place] Commercial [id number] Self [id number] BCBS/[place] Commercial [id number] Self [id number] BCBS/[place] Commercial [id number] Self [id number] EXCELLUS BCBS B [id number] S [id number] BS [place] Trad/[place] Commercial 521 Self 521 [place] 020/ [id number] SP [id number] [place]AT[place] PPO 302/307 [id number] SP [id number] EXCELLUS BCBS B [id number] S [id number] [place] PPO 302/307 [id number] SP [id number] [employer] [id number] SP [id number] [facility] Med[facility] Part B Self BC[facility] Commercial Self EXCELLUS BCBS P [id number] S [id number] Results ID Date Data Source [id number] 10/07/2020 12:47:00 PM EST [facility] ([facility]) Name Value Range Interpretation Code Description Data Jessica rce(s) Supporting Document(s) Natriuretic peptide.B prohormone N-Terminal [Mass/volu me] in Serum or Plasma 14 pg/mL [facility] ([facility] ) ID Date Data Source [id number] 10/07/2020 12:47:00 PM EST [facility] ([facility]) Name Value Range Interpretation Code Description Data Jessica rce(s) Supporting Document(s) Glucose, Fasting 91 mg/dL 70-100 [facility] ([facility]) Blood Urea Nitrogen 8 mg/dL 7-18 [facility] ([facility]) Creatinine For GFR 0.87 mg/dL 0.55-1.30 [facility] ([facility]) Glomerular Filtration Rate Laboratory test result [facility] <content>Units are mL/min/1.73 m2</content>
<content></content>
<content>Chronic Kidney Disease Staging per NKF:</content>
<content></content>
<content>Stage I & II GFR >=60 Normal to Mildly Decreased</content>
<content>Stage III GFR 30- 59 Moderately Decreased</content>
<content>Stage IV GFR 15-29 Severely Decreased</content>
<content>Stage V GFR <15 Very Little GFR Left</content>
<content>ESRD GFR <15 on SOLUTIONS CONSULTANT</content>
<content></content> Potassium Serum 3.2 meq/L 3.5-5.1 [facility] ([facility]) Sodium Level 140 meq/L 136-145 [facility] ([facility]) Carbon Dioxide Level 29 meq/L 21-32 [facility] ([facility]) Chloride Level 105 meq/L 98-107 [facility] ([facility]) Calcium Level 9.6 mg/dL 8.5-10.1 [facility] ([facility]) Anion Gap 6 meq/L 8-16 [facility] [facility]) ID Date Data Source [id number] 10/07/2020 12:47:00 PM EST [facility] ([facility]) Name Value Range Interpretation Code Description Data Jessica rce(s) Supporting Document(s) Alt/SGPT 33 U/L 12-78 [facility] ([place] [facility]) Ast/Sgot 11 U/L 7-37 [facility] ([facility]) Alkaline Phosphatase 102 U/L 45-117 [facility] ([facility]) Total Protein 7.6 GM/DL 6.4-8.2 [facility] ([facility]) Bilirubin,Total 0.7 mg/dL 0.2-1.0 [facility] ([facility]) Bilirubin,Direct 0.1 mg/dL 0.0-0.2 [facility] ([facility]) Albumin/Globulin Ratio 0.9 1.2-2.2 [facility] ([facility]) Albumin 3.7 GM/DL 3.2-5.2 [facility] ([place] [facility]) ID Date Data Source [id number] 10/07/2020 12:47:00 PM EST [facility] ([facility]) Name Value Range Interpretation Code Description Data Jessica rce(s) Supporting Document(s) CK-MB Value Mass Laboratory test result [facility] ([facility]) CPK Creatine Phosphokinase 26 U/L 26-192 MED ENT ([facility]) Troponin I Laboratory test result [facility] ([facility]) <content>Troponin I Reference Interval f or Siemens [place] LOCI:</content>
<content></content>
<content>99th Percentile= 0.00-0.045 ng/ml</content>
<content></content>
<content>Risk Stratification:</content>
<content><= 0.10 ng/ml Decreased Risk for Adverse Clinical</content>
<content>Events.</content>
<content>0.10-1.50 ng/ml Increased Risk for Adverse Clinical</content>
<content>Events. Evaluation of additional</content>
<content>criterion and/or repeat testing in 2-6</content>
<content>hours is suggested to rule out myocardial</content>
<content>damage.</content>
<content>>= 1.50 ng/ml Indicative of Myocardial Injury.</content>
<content></content> MB/CK Relative Index 3.85 [facility] ([facility]) <content>DIAGNOSIS CRITERIA</content>
<content>MMB ng/ml Relative Index (RI)</content>
<content>NON-AMI < or = 5 N/A</content>
<content>ELLSWORTH ZONE > 5 < or = 4</content>
<content>AMI > 5 > 4</content>
<content></content> ID Date Data Source [id number] 10/07/2020 12:47:00 PM EST [facility] ([facility]) Name Value Range Interpretation Code Description Data Jessica rce(s) Supporting Document(s) Prothrombin Time 13.1 s 12.5-14.3 [facility] ([facility]) Inr 0.98 [facility] ([facility]) THERAPUTIC HUMAN INR VALUES INDICATIONS NORMAL RANGES PROPHYLAXIS/TREATMENT OF: VENOUS THROMBOSIS 2.0-3.0 PULMONARY EMBOLISM 2.0-3.0 PREVENTION OF SYSTEMIC EMBOLISM FROM: TISSUE HEART VALVES 2.0-3.0 ACUTE MYOCARDIAL INFARCTION 2.0-3.0 VALVULAR HEART DISEASE 2.0-3.0 ATRIAL FIBRILLATION 2.0-3.0 MECHANICAL VALVES(HIGH RISK) 2.5-3.5 RECURRENT MYOCARDIAL INFARCTION 2.5-3.5 ID Date Data Source [id number] 10/07/2020 12:47:00 PM EST [facility] ([facility]) Name Value Range Interpretation Code Description Data Jessica rce(s) Supporting Document(s) White Blood Count 9.1 10 4.0-10.0 [facility] ([facility]) Red Blood Count 4.93 10 4.00-5.40 [facility] ([facility]) Hemoglobin 13.9 g/dL 12.0-15.5 [facility] ([place] [facility]) Mean Corpuscular Volume 89.0 fl 80.0-96.0 [facility] ([facility]) Hematocrit 43.9 % 36.0-47.0 [facility] ([facility]) Red Cell Distribution Width 12.3 % 11.5-14.5 ME DENT ([facility]) Mean Corpuscular HGB Conc 31.7 g/dL 32.0-36.5 MEDE NT ([facility]) Mean Corpuscular Hemoglobin 28.2 pg 27.0-33.0 ME DENT ([facility]) Platelet Count, Automated 306 10 150-450 MEDE NT ([facility]) Neutrophils % 66.8 % 36.0-66.0 [facility] ([facility]) Lymph % 22.3 % 24.0-44.0 [facility] [facility]) [place] % 10.0 % 0.0-5.0 [facility] [facility]) Eos % 0.4 % 0.0-3.0 [facility] [facility] Immature Granulocyte % 0.3 % 0-3.0 [facility] ([facility]) Baso % 0.2 % 0.0-1.0 [facility] [facility]) Nucleated Red Blood Cell % 0.0 % 0-0 MED ENT ([facility]) Neutrophils # 6.1 10 1.5-8.5 [facility] ([facility]) [place] # 0.9 10 0.0-0.8 [facility] [facility] Lymph # 2.0 10 1.5-5.0 [facility] [facility]) Eos # 0.0 10 0.0-0.5 [facility] Baso # 0.0 10 0.0-0.2 [facility] ([facility] ID Date Data Source [id number] 08/29/2020 12:00:00 AM EST [facility] Name Value Range Interpretation Code Description Data Jessica rce(s) Supporting Document(s) 2019-nCoV RNA XXX LISBETH+probe-Imp [facility] This lab was ordered by [facility] and reported by [facility]. ID Date Data Source [id number] 08/24/2020 01:52:00 PM EST [facility] ([facility]) Name Value Range Interpretation Code Description Data Jessica rce(s) Supporting Document(s) Carcinoembryonic Ag [Mass/volume] in Serum or Plasma Laboratory nahid t result MED[facility] ([facility]) THE CEA ASSAY IS PERFORMED ON THE [employer] BY CHEMILUMINESCENCE AND SHOULD NOT BE COMPARED INTERCHANGEABLY WITH OTHER METHODS. IT SHOULD NOT BE USED ALONE A SCREENING TEST OR DIAGNOSIS FOR THE PRESENCE OR ABSENCE OF MALIGNANT DISEASE. PREDICTIONS OF DISEASE RECURRENCE SHOULD NOT BE BASED SOLELY ON VALUES OBTAINED FROM SERIAL PATIENT SERUM VALUES. ID Date Data Source [id number] 08/24/2020 01:52:00 PM EST [facility] ([facility]) Name Value Range Interpretation Code Description Data Jessica rce(s) Supporting Document(s) Thyrotropin [Units/volume] in Serum or Plasma by Detec tion limit <= 0.05 mIU/L 0.70 uIU/mL 0.36-3.74 [facility] ([facility] ) ID Date Data Source [id number] 08/24/2020 01:52:00 PM EST [facility] ([facility]) Name Value Range Interpretation Code Description Data Jessica rce(s) Supporting Document(s) Cholesterol [Mass/volume] in Serum or Plasma 199 mg/dL 131-200 [facility] ([facility]) Triglyceride [Mass/volume] in Serum or Plasma 119 mg/dL 30-150 [facility] ([facility]) Cholesterol in HDL [Mass/volume] in Serum or Plasma 52 mg/dL 35-60 [facility] ([facility]) Cholesterol in LDL [Mass/volume] in Serum or Plasma by calcu lation 123 CALC 50-159 [facility] ([facility]) ID Date Data Source [id number] 08/24/2020 01:52:00 PM EST [facility] ([facility]) Name Value Range Interpretation Code Description Data Jessica rce(s) Supporting Document(s) Glucose [Mass/volume] in Serum or Plasma 93 mg/dL 74-99 [facility] ([facility]) 100-125 mg/dL PRE-DIABETES/FASTING >126 mg/dL DIABETES/FASTING Urea nitrogen [Mass/volume] in Serum or Plasma 8 mg/dL 7-18 [facility] ([facility]) Sodium [Moles/volume] in Serum or Plasma 140 meq/L 136-145 [facility] ([facility]) Creatinine 0.9 mg/dL 0.6-1.3 [facility] ([facility]) Potassium [Moles/volume] in Serum or Plasma 3.6 meq/L 3.5-5.1 [facility] ([facility]) Chloride [Moles/volume] in Serum or Plasma 103 meq/L 98-107 [facility] ([facility]) Carbon dioxide, total [Moles/volume] in Serum or Plasma 29 meq/L 21 -32 [facility] ([facility]) Total Bilirubin 0.5 mg/dL 0.2-1.0 [facility] ([facility]) Calcium [Mass/volume] in Serum or Plasma 8.9 mg/dL 8.5-10.1 [facility] ([facility]) Alkaline phosphatase isoenzyme [Units/volume] in Serum or Pl asma 82 mg/dL 46-116 [facility] ([facility]) Aspartate aminotransferase [Enzymatic activity/volume] in Serum or Plasma 14 U/L 15-37 [facility] ([facility] ) Alanine aminotransferase [Enzymatic activity/volume] in Seru m or Plasma 25 U/L 12-78 [facility] ([facility]) Albumin [Mass/volume] in Serum or Plasma 3.8 g/dL 3.4-5.0 [facility] Glomerular filtration rate/1.73 sq M pre dicted among non-blacks [Volume Rate/Area] in Serum or Plasma by Creatinine-based formula (MDRD) Laboratory test result [facility] Proteinase 3 Ab [Units/volume] in Serum 7.6 g/dL 6.4-8.2 [facility] A/G Ratio 1.00 CALC 1.00-1.90 [facility] ([place] [facility]) Glomerular filtration rate/1.73 sq M pre dicted among blacks [Volume Rate/Area] in Serum or Plasma by Creatinine-based formula (MDRD) [facility] <content>CHRONIC KIDNEY DISEASE STAGING PER NKF</content>
<content></content>
<content>STAGE I & II GFR >= 60 NORMAL TO MILDLY DECREASED</content>
<content>STAGE III GFR 30-59 MODERATELY DECREASED</content>
<content>STAGE IV GFR 15-29 SEVERELY DECREASED</content>
<content>STAGE V GFR <15 VERY LITTLE GFR LEFT</content>
<content>ESRD GFR <15 ON SOLUTIONS CONSULTANT</content>
<content></content> ID Date Data Source [id number] 02/12/2020 11:47:00 AM EDT [facility] Name Value Range Interpretation Code Description Data Jessica rce(s) Supporting Document(s) Thyrotropin [Units/volume] in Serum or Plasma by Detec tion limit <= 0.05 mIU/L 1.35 uIU/mL 0.36-3.74 [facility] ID Date Data Source [id number] 02/12/2020 11:47:[address]T [facility] Name Value Range Interpretation Code Description Data Jessica rce(s) Supporting Document(s) Cholesterol in HDL [Mass/volume] in Serum or Plasma 46 mg/dL 35-60 [facility] Cholesterol [Mass/volume] in Serum or Plasma 204 mg/dL 131-200 [facility] ([facility]) Triglyceride [Mass/volume] in Serum or Plasma 137 mg/dL 30-150 [facility] ([facility]) Cholesterol in LDL [Mass/volume] in Serum or Plasma by calcu lation 131 CALC 50-159 [facility] ([facility]) ID Date Data Source [id number] 02/12/2020 11:47:00 AM EDT [facility] ([facility]) Name Value Range Interpretation Code Description Data Jessica rce(s) Supporting Document(s) Glucose [Mass/volume] in Serum or Plasma 81 mg/dL 74-99 [facility] ([facility]) 100-125 mg/dL PRE-DIABETES/FASTING >126 mg/dL DIABETES/FASTING Urea nitrogen [Mass/volume] in Serum or Plasma 10 mg/dL 7-18 [facility] ([facility]) Creatinine 0.8 mg/dL 0.6-1.3 [facility] ([facility]) Chloride [Moles/volume] in Serum or Plasma 104 meq/L 98-107 [facility] ([facility]) Sodium [Moles/volume] in Serum or Plasma 141 meq/L 136-145 [facility] ([facility]) Potassium [Moles/volume] in Serum or Plasma 3.8 meq/L 3.5-5.1 [facility] ([facility]) Carbon dioxide, total [Moles/volume] in Serum or Plasma 31 meq/L 21 -32 [facility] ([facility]) Alkaline phosphatase isoenzyme [Units/volume] in Serum or Pl asma 83 mg/dL 46-116 [facility] ([facility]) Calcium [Mass/volume] in Serum or Plasma 8.9 mg/dL 8.5-10.1 [facility] ([facility]) Aspartate aminotransferase [Enzymatic activity/volume] in Serum or Plasma 18 U/L 15-37 [facility] ([facility] ) Alanine aminotransferase [Enzymatic activity/volume] in Seru m or Plasma 26 U/L 12-78 [facility] ([facility]) Total Bilirubin 0.4 mg/dL 0.2-1.0 [facility] ([facility]) A/G Ratio 1.09 CALC 1.00-1.90 [facility] ([place] [facility]) Albumin [Mass/volume] in Serum or Plasma 3.7 g/dL 3.4-5.0 [facility] Proteinase 3 Ab [Units/volume] in Serum 7.1 g/dL 6.4-8.2 [facility] Glomerular filtration rate/1.73 sq M pre dicted among non-blacks [Volume Rate/Area] in Serum or Plasma by Creatinine-based formula (MDRD) Laboratory test result [facility] ([facility] ) Glomerular filtration rate/1.73 sq M pre dicted among blacks [Volume Rate/Area] in Serum or Plasma by Creatinine-based formula (MDRD) Laboratory test result [facility] ([facility]) <content>CHRONIC KIDNEY DISEASE STAGING PER NKF</content>
<content></content>
<content>STAGE I & II GFR >= 60 NORMAL TO MILDLY DECREASED</content>
<content>STAGE III GFR 30-59 MODERATELY DECREASED</content>
<content>STAGE IV GFR 15-29 SEVERELY DECREASED</content>
<content>STAGE V GFR <15 VERY LITTLE GFR LEFT</content>
<content>ESRD GFR <15 ON SOLUTIONS CONSULTANT</content>
<content></content> ID Date Data Source [id number] 02/12/2020 11:47:00 AM EDT [facility] ([facility]) Name Value Range Interpretation Code Description Data Jessica rce(s) Supporting Document(s) Hematocrit [Volume Fraction] of Blood by Automated count 38.7 % 3 7.0-51.0 [facility] ([facility]) Erythrocytes [#/volume] in Blood by Automated count 4.51 x10*6/UL 4.2 0-6.30 [facility] ([facility]) Leukocytes [#/volume] in Blood by Automated count 5.9 x10*3/UL 4.1-10 .9 [facility] ([facility]) Hemoglobin [Mass/volume] in Blood 12.9 g/dL 12.0-18.0 [facility] ([facility]) MCV 85.8 fL 80.0-97.0 [facility] [facility] MCH 28.7 pg 26.0-32.0 [facility] ([place] [facility]) MPV 8.8 FL 7.8-11.0 [facility] ([facility]) Erythrocyte distribution width [Ratio] by Automated count 12.3 % 11.6-13.7 [facility] Platelets [#/volume] in Blood by Automated count 324 x10*3/UL 140-440 [facility] [place] MCHC 33.4 g/dL 31.0-38.0 [facility] [facility] Neut % 52.8 % 37.0-92.0 [facility] ([facility]) Mid % 8.5 % 1.7-9.3 [facility] ([facility]) Lymph % 38.7 % 10.0-58.5 [facility] ([facility]) Lymph # 2.2 x10*3/UL 0.6-4.1 [facility] ([facility]) Neut # 3.1 x10*3/UL 2.0-7.8 [facility] Mid # 0.6 x10*3/UL 0.1-0.6 [facility] ID Date Data Source [id number] 08/18/2019 10:20:00 AM EST [facility] Name Value Range Interpretation Code Description Data Jessica rce(s) Supporting Document(s) Carcinoembryonic Ag [Mass/volume] in Serum or Plasma 0.7 ng/mL [facility] THE CEA ASSAY IS PERFORMED ON THE [place] BY CHEMILUMINESCENCE AND SHOULD NOT BE COMPARED INTERCHANGEABLY WITH OTHER METHODS. IT SHOULD NOT BE USED ALONE A SCREENING TEST OR DIAGNOSIS FOR THE PRESENCE OR ABSENCE OF MALIGNANT DISEASE. PREDICTIONS OF DISEASE RECURRENCE SHOULD NOT BE BASED SOLELY ON VALUES OBTAINED FROM SERIAL PATIENT SERUM VALUES. ID Date Data Source [id number] 08/18/2019 10:19:00 AM EST [facility] ([facility] Name Value Range Interpretation Code Description Data Jessica rce(s) Supporting Document(s) Thyrotropin [Units/volume] in Serum or Plasma by Detec tion limit <= 0.05 mIU/L 1.85 uIU/mL 0.36-3.74 [facility] ([facility] ) ID Date Data Source [id number] 08/18/2019 10:19:00 AM EST [facility] ([facility]) Name Value Range Interpretation Code Description Data Jessica rce(s) Supporting Document(s) Cholesterol [Mass/volume] in Serum or Plasma 246 mg/dL 131-200 [facility] ([facility]) Triglyceride [Mass/volume] in Serum or Plasma 164 mg/dL 30-150 [facility] ([facility]) Cholesterol in LDL [Mass/volume] in Serum or Plasma by calcu lation 162 CALC 50-159 [facility] ([facility]) Cholesterol in HDL [Mass/volume] in Serum or Plasma 51 mg/dL 35-60 [facility] ([facility]) ID Date Data Source [id number] 08/18/2019 10:19:00 AM EST [facility] ([facility]) Name Value Range Interpretation Code Description Data Jessica rce(s) Supporting Document(s) Glucose [Mass/volume] in Serum or Plasma 78 mg/dL 74-99 [facility] ([facility]) 100-125 mg/dL PRE-DIABETES/FASTING >126 mg/dL DIABETES/FASTING Potassium [Moles/volume] in Serum or Plasma 3.6 meq/L 3.5-5.1 [facility] ([facility]) Creatinine 0.9 mg/dL 0.6-1.3 [facility] ([place] [facility] n[facility]ists) Sodium [Moles/volume] in Serum or Plasma 141 meq/L 136-145 [facility] ([facility]) Urea nitrogen [Mass/volume] in Serum or Plasma 10 mg/dL 7-18 [facility] ([facility]) Carbon dioxide, total [Moles/volume] in Serum or Plasma 26 meq/L 21 -32 [facility] ([facility]) Chloride [Moles/volume] in Serum or Plasma 102 meq/L 98-107 [facility] ([facility]) Calcium [Mass/volume] in Serum or Plasma 9.8 mg/dL 8.5-10.1 [facility] ([facility]) Aspartate aminotransferase [Enzymatic activity/volume] in Serum or Plasma 26 U/L 15-37 [facility] ([facility] ) Alkaline phosphatase isoenzyme [Units/volume] in Serum or Pl asma 92 mg/dL 46-116 [facility] ([facility]) Total Bilirubin 0.3 mg/dL 0.2-1.0 [facility] ([facility]) Alanine aminotransferase [Enzymatic activity/volume] in Seru m or Plasma 44 U/L 12-78 [facility] ([facility]) Albumin [Mass/volume] in Serum or Plasma 3.8 g/dL 3.4-5.0 [facility] ([facility]) Proteinase 3 Ab [Units/volume] in Serum 7.5 g/dL 6.4-8.2 [facility] ([facility]) A/G Ratio 1.03 CALC 1.00-1.90 [facility] Glomerular filtration rate/1.73 sq M pre dicted among blacks [Volume Rate/Area] in Serum or Plasma by Creatinine-based formula (MDRD) Laboratory test result [facility] <content>CHRONIC KIDNEY DISEASE STAGING PER NKF</content>
<content></content>
<content>STAGE I & II GFR >= 60 NORMAL TO MILDLY DECREASED</content>
<content>STAGE III GFR 30-59 MODERATELY DECREASED</content>
<content>STAGE IV GFR 15-29 SEVERELY DECREASED</content>
<content>STAGE V GFR <15 VERY LITTLE GFR LEFT</content>
<content>ESRD GFR <15 ON [employer] CONSULTANT</content>
<content></content> Glomerular filtration rate/1.73 sq M pre dicted among non-blacks [Volume Rate/Area] in Serum or Plasma by Creatinine-based formula (MDRD) Laboratory test result [facility] ([facility] ) ID Date Data Source [id number] 08/18/2019 08:31:00 AM EST [facility] Name Value Range Interpretation Code Description Data Jessica rce(s) Supporting Document(s) Hearing Evaluation Laboratory test result [facility] ([facility]) Procedure Vital Signs ID Date Data Source UNK Name Value Range Interpretation Code Description Data Source(s) Body mass index (BMI) [Ratio] 34.5 kg/m2 34.5 k g/m2 [facility] ([facility]) Oxygen saturation in Arterial blood by Pulse oximetry 98 % 98 % [facility] ([facility]) Body weight 220.00 [lb_av] 220.00 [lb_av] [facility] ([facility]) Body height 67 [in_i] 67 [in_i] [facility] ([facility]) 5'7" Heart rate 88 /min 88 /min [facility] ([facility]) Diastolic blood pressure 84 mm[Hg] 84 mm[Hg] [facility] ([facility]) Systolic blood pressure 142 mm[Hg] 142 mm[Hg] [facility] ([facility]) Body mass index (BMI) [Ratio] 34.5 kg/m2 34.5 k g/m2 [facility] ([facility]) Body weight 220.00 [lb_av] 220.00 [lb_av] [employer] ([facility]) Body height 67 [in_i] 67 [in_i] [facility] ([facility]) 5'7" Heart rate 68 /min 68 /min [facility] ([facility]) Diastolic blood pressure 70 mm[Hg] 70 mm[Hg] [facility] ([facility]) Systolic blood pressure 124 mm[Hg] 124 mm[Hg] [facility] ([facility]) Body mass index (BMI) [Ratio] 35.1 kg/m2 35.1 k g/m2 [facility] ([facility]) Body weight 224.00 [lb_av] 224.00 [lb_av] [employer] ([facility]) Body height 67 [in_i] 67 [in_i] [facility] ([facility]) 5'7" Heart rate 70 /min 70 /min [facility] ([facility]) Diastolic blood pressure 76 mm[Hg] 76 mm[Hg] [facility] ([facility]) Systolic blood pressure 122 mm[Hg] 122 mm[Hg] [facility] ([facility]) Body mass index (BMI) [Ratio] 34.6 kg/m2 34.6 k g/m2 [facility] ([facility] [place]) Body height 67 [in_i] 67 [in_i] [facility] ([facility]) 5'7" Body weight 221.00 [lb_av] 221.00 [lb_av] [facility] ([facility]) Oxygen saturation in Arterial blood by Pulse oximetry 97 % 97 % [facility] ([facility]) Respiratory rate 14 /min 14 /min [facility] ( [facility]) Heart rate 79 /min 79 /min [facility]) Diastolic blood pressure 85 mm[Hg] 85 mm[Hg] [facility] ([facility], [facility]) Systolic blood pressure 145 mm[Hg] 145 mm[Hg] [facility] [facility]) Body mass index (BMI) [Ratio] 34.6 kg/m2 34.6 k g/m2 [facility] ([facility]) Body weight 221.00 [lb_av] 221.00 [lb_av] [facility] ([facility]) Body height 67 [in_i] 67 [in_i] [facility] ([facility]) 5'7" Heart rate 72 /min 72 /min [facility] ([facility]) Diastolic blood pressure 74 mm[Hg] 74 mm[Hg] [facility] Systolic blood pressure 130 mm[Hg] 130 mm[Hg] [facility] Body weight 211.00 [lb_av] 211.00 [lb_av] [facility] ([facility], ) Body height 67 [in_i] 67 [in_i] [facility] ([facility], ) 5'7" Body weight 95.710 kg 95.710 kg [facility] ([facility]) Body mass index (BMI) [Ratio] 33.0 kg/m2 33.0 k g/m2 [facility] ([facility], ) Body mass index (BMI) [Ratio] 33.7 kg/m2 33.7 k g/m2 [facility] [facility]) Body height 67 [in_i] 67 [in_i] [facility] ([facility], [facility]) 5'7" Body weight 215.00 [lb_av] 215.00 [lb_av] [facility] ([facility]) Body temperature 98.0 [degF] 98.0 [degF] [facility] ([facility], [facility]) Oxygen saturation in Arterial blood by Pulse oximetry 98 % 98 % [facility] ([facility], [facility]) Respiratory rate 16 /min 16 /min [facility] ( [facility], [facility]) Heart rate 69 /min 69 /min [facility] ([facility]) Diastolic blood pressure 81 mm[Hg] 81 mm[Hg] [facility] ([facility], [facility]) Systolic blood pressure 122 mm[Hg] 122 mm[Hg] [facility] ([facility], [facility]) Body mass index (BMI) [Ratio] 35.1 kg/m2 35.1 k g/m2 [facility]) Oxygen saturation in Arterial blood by Pulse oximetry 97 % 97 % [facility] Air Body weight 224.00 [lb_av] 224.00 [lb_av] [facility] ([facility]) Body height 67 [in_i] 67 [in_i] [facility] ([facility]) 5'7" Heart rate 82 /min 82 /min [facility]) Diastolic blood pressure 70 mm[Hg] 70 mm[Hg] [facility] ([facility]) Systolic blood pressure 132 mm[Hg] 132 mm[Hg] [facility] ([facility])
[2020-10-12] MEDS ORDERED: ATEN25TA PO (14:33)
--- OUTSIDE RECORDS SUMMARY | 2020-10-12 16:43 | CCD ---
Author Author [facility] Address Unknown Phone Unavailable Care Team Providers Care Network Cabler Name Role Phone Alfred Quintanilla MD Unavailable [...] F Kenny MAGALLANES Unavailable Unavailable Socorro F Kenyn MAGALLANES Unavailable Unavailable Socorro F Kenny MAGALLANES [...] Unavailable Socorro F Kenny MAGALLANES Unavailable Unavailable AMAURY, PREM PA Unavailable Unavailable [...] is protected by Article 27-F of the [facility] Public Health law. If you continue you may have access to information: Regarding HIV / AIDS; Provided by facilities licensed or operated by the [facility] Office of Mental Health; or Provided by the [facility] Office for People With Developmental Disabilities. If such information is present, then the following [facility] mandated warning applies: This information has [...] law may result in a fine or assisted sentence or both. A general authorization for the release of medical or other information is NOT sufficient authorization for further disc losure. Family History Family Member Name Family Member Gender Family Member Status Date o f Status Description Data Source(s) Unknown Unknown Problem [facility] ([facility] mgm Unknown Unknown Problem [facility] Unknown Female Problem [facility] ([facility]) Unknown Female Problem [facility] ([facility]) Encounters Encounter Providers Location Date Indications Data Source(s ) Outpatient Attender: Kenny Rodgers 10/04 09:30:00 AM EST [facility] ([facility] ) Outpatient Attender: Kenny Rodgers 08/24 01:00:00 PM EST [facility] ([facility] ) Outpatient Attender: PREM Adena ry 06/05/2020 02:15:00 PM EDT [facility] ([facility]) [facility] [place] [address] [place] [address] 05/16/2020 12:00:00 AM EDT eCW1 ([facility]) Outpatient Attender: Kenny Rodgers 02/15 02:00:00 PM EDT [facility] ([facility] ) Outpatient Attender: MARISOL Aden tim 10/04/2019 12:10:00 PM EST [facility] ([facility], [facility]) Immunizations Vaccine Date Status Description Data Source(s) Influenza, injectable, MDCK, preservative free, zoran valent 08/17/2019 01:35:00 PM EST completed [facility] ([place] [facility]) Medications Medication Brand Name Start Date Product Form Dose Route Admi nistrative Instructions Pharmacy Instructions Status Indications Reaction Description Data Source(s) Atenolol 25 MG Oral Tablet Atenolol 10/10/2020 12:00:00 AM EST ORAL active [facility] ([facility]) Alprazolam 0.25 MG Oral Tablet [Xanax] Xanax 10/04/2020 12:00:00 AM EST ORAL active [facility] ([facility]) Sertraline 25 MG Oral Tablet Sertraline HCL 10/04/2020 12:00:00 AM EST ORAL active [facility] ([facility]) Amitriptyline Hydrochloride 50 MG Oral Tablet Amitriptyline HCL 09/30/2020 12:00:00 AM EST ORAL active [facility] ([facility]) Amitriptyline Hydrochloride 75 MG Oral Tablet Amitriptyline HCL 08/24/2020 12:00:00 AM EST ORAL completed [facility] ([facility]) Amoxicillin 875 MG / Clavulanate 125 MG Oral Tablet Am oxicillin/Clavulanate Potassium 06/05/2020 12:00:00 AM EDT ORAL active [facility] Prednisone 20 MG Oral Tablet Prednisone 10/04/2019 12:00:00 AM EST active [facility] ([facility]) Amoxicillin 875 MG / Clavulanate 125 MG Oral Tablet Am oxicillin/Clavulanate Potassium 10/04/2019 12:00:00 AM EST ORAL active [facility] ([facility], [facility]) Amoxicillin 875 MG / Clavulanate 125 MG Oral Tablet Am oxicillin/Clavulanate Potassium 08/12/2019 12:00:00 AM EST ORAL completed [facility] ([facility], [facility]) Insurance Providers Payer name Policy type / Coverage type Policy ID Covered alliance party ID Covered alliance party's relationship to bennett Policy Bennett Plan Information [employer] [place] [id number] SP [id number] [place] [id number] SP [id number] SELF PAY ONLY [id number] SP [id number] [employer]BS B [id number] S W [id number] [place] [id number] SP [id number] BCBS/[place] Commercial [id number] Self [id number] [facility] Trad/MX Commercial [id number] Self [id number] BC[employer]/[place] Commercial [id number] Self [id number] BC[employer]/[place] Commercial [id number] Self [id number] BC[employer]/[place] Commercial [id number] Self [id number] BC[employer]/[place] Commercial [id number] Self [id number] [employer]/[place] Commercial [id number] Self [id number] [employer]/[place] Commercial [id number] Self [id number] [employer] BCBS B [id number] S [id number] [facility] Trad/[place] Commercial 521 Self 521 [employer] [place] [id number] SP [id number] [place]AT[place] PPO 302/307 [id number] SP [id number] [employer] BCBS B [id number] S [id number] [place]AT[place] PPO 302/307 [id number] SP [id number] [employer] [id number] SP [id number] BC/[place] Part B Self BC[place] Commercial Self [employer] BCBS P [id number] S [id number] Results ID Date Data Source [id number] 10/07/2020 12:47:00 PM EST [facility] ([facility]) Name Value Range Interpretation Code Description Data Jessica rce(s) Supporting Document(s) Natriuretic peptide.B prohormone N-Terminal [Mass/volu me] in Serum or Plasma 14 pg/mL [place] ([facility] ) ID Date Data Source [id number] 10/07/2020 12:47:00 PM EST [facility] ([facility]) Name Value Range Interpretation Code Description Data Jessica rce(s) Supporting Document(s) Glucose, Fasting 91 mg/dL 70-100 [facility] ([facility]) Blood Urea Nitrogen 8 mg/dL 7-18 [facility] ([facility]) Creatinine For GFR 0.87 mg/dL 0.55-1.30 [place] ([facility]) Glomerular Filtration Rate Laboratory test result [place] ([facility]) <content>Units are mL/min/1.73 m2</content>
<content></content>
<content>Chronic Kidney Disease Staging per NKF:</content>
<content></content>
<content>Stage I & II GFR >=60 Normal to Mildly Decreased</content>
<content>Stage III GFR 30- 59 Moderately Decreased</content>
<content>Stage IV GFR 15-29 Severely Decreased</content>
<content>Stage V GFR <15 Very Little GFR Left</content>
<content>ESRD GFR <15 on DESK CLERK</content>
<content></content> Potassium Serum 3.2 meq/L 3.5-5.1 [facility] ([facility]) Sodium Level 140 meq/L 136-145 [facility] ([facility]) Carbon Dioxide Level 29 meq/L 21-32 [facility] ([facility]) Chloride Level 105 meq/L 98-107 [facility] ([facility]) Calcium Level 9.6 mg/dL 8.5-10.1 [facility] ([facility]) Anion Gap 6 meq/L 8-16 [facility] ([place] [facility]) ID Date Data Source [id number] 10/07/2020 12:47:00 PM EST [facility] ([facility]) Name Value Range Interpretation Code Description Data Jessica rce(s) Supporting Document(s) Alt/SGPT 33 U/L 12-78 [facility] ([facility] [facility]) Ast/Sgot 11 U/L 7-37 [facility] ([facility]) Alkaline Phosphatase 102 U/L 45-117 [facility] ([facility]) Total Protein 7.6 GM/DL 6.4-8.2 [facility] ([facility]) Bilirubin,Total 0.7 mg/dL 0.2-1.0 [facility] ([facility]) Bilirubin,Direct 0.1 mg/dL 0.0-0.2 [facility] ([facility]) Albumin/Globulin Ratio 0.9 1.2-2.2 [facility] Albumin 3.7 GM/DL 3.2-5.2 [facility] [facility] ID Date Data Source [id number] 10/07/2020 12:47:00 PM EST [facility] ([facility]) Name Value Range Interpretation Code Description Data Jessica rce(s) Supporting Document(s) CK-MB Value Mass Laboratory test result [facility] ([facility]) CPK Creatine Phosphokinase 26 U/L 26-192 [facility] ([facility]) Troponin I Laboratory test result [facility] ([facility]) <content>Troponin I Reference Interval f or Siemens [place] LOCI:</content>
<content></content>
<content>99th Percentile= 0.00-0.045 ng/ml</content>
<content></content>
<content>Risk Stratification:</content>
<content><= 0.10 ng/ml Decreased Risk for Adverse Clinical</content>
<content>Events.</content>
<content>0.10-1.50 ng/ml Increased Risk for Adverse Clinical</content>
<content>Events. Evaluation of additional</content>
<content>criterion and/or repeat testing in 2-6</content>
<content>hours is suggested to rule out myocardial</content>
<content>damage.</content>
<content>>= 1.50 ng/ml Indicative of Myocardial Injury.</content>
<content></content> MB/CK Relative Index 3.85 [facility] <content>DIAGNOSIS CRITERIA</content>
<content>MMB ng/ml Relative Index (RI)</content>
<content>NON-AMI < or = 5 N/A</content>
<content>ELLSWORTH ZONE > 5 < or = 4</content>
<content>AMI > 5 > 4</content>
<content></content> ID Date Data Source [id number] 10/07/2020 12:47:00 PM EST [facility] ([facility]) Name Value Range Interpretation Code Description Data Jessica rce(s) Supporting Document(s) Prothrombin Time 13.1 s 12.5-14.3 [facility] ([facility]) Inr 0.98 [facility] ([facility]) THERAPUTIC HUMAN INR VALUES INDICATIONS NORMAL RANGES PROPHYLAXIS/TREATMENT OF: VENOUS THROMBOSIS 2.0-3.0 PULMONARY EMBOLISM 2.0-3.0 PREVENTION OF SYSTEMIC EMBOLISM FROM: TISSUE HEART VALVES 2.0-3.0 ACUTE MYOCARDIAL INFARCTION 2.0-3.0 VALVULAR HEART DISEASE 2.0-3.0 ATRIAL FIBRILLATION 2.0-3.0 MECHANICAL VALVES(HIGH RISK) 2.5-3.5 RECURRENT MYOCARDIAL INFARCTION 2.5-3.5 ID Date Data Source [id number] 10/07/2020 12:47:00 PM EST [facility] ([facility]) Name Value Range Interpretation Code Description Data Jessica rce(s) Supporting Document(s) White Blood Count 9.1 10 4.0-10.0 [facility] ([facility]) Red Blood Count 4.93 10 4.00-5.40 [facility] ([facility]) Hemoglobin 13.9 g/dL 12.0-15.5 [facility] ([facility]) Mean Corpuscular Volume 89.0 fl 80.0-96.0 [facility] ([facility]) Hematocrit 43.9 % 36.0-47.0 [facility] ([facility]) Red Cell Distribution Width 12.3 % 11.5-14.5 [facility] ([facility]) Mean Corpuscular HGB Conc 31.7 g/dL 32.0-36.5 [facility] NT ([facility]) Mean Corpuscular Hemoglobin 28.2 pg 27.0-33.0 [facility] ([facility]) Platelet Count, Automated 306 10 150-450 [facility] NT ([facility]) Neutrophils % 66.8 % 36.0-66.0 [facility] ([facility]) Lymph % 22.3 % 24.0-44.0 [facility]) Moody % 10.0 % 0.0-5.0 [facility] Eos % 0.4 % 0.0-3.0 [facility] Immature Granulocyte % 0.3 % 0-3.0 [facility] ([facility]) Baso % 0.2 % 0.0-1.0 [facility]) Nucleated Red Blood Cell % 0.0 % 0-0 [facility] ([facility]) Neutrophils # 6.1 10 1.5-8.5 [facility] ([facility]) Moody # 0.9 10 0.0-0.8 [facility] Lymph # 2.0 10 1.5-5.0 [facility] Eos # 0.0 10 0.0-0.5 [facility] Baso # 0.0 10 0.0-0.2 [facility]) ID Date Data Source [id number] 08/29/2020 12:00:00 AM EST [facility] Name Value Range Interpretation Code Description Data Jessica rce(s) Supporting Document(s) 2019-nCoV RNA XXX LISBETH+probe-Imp [facility] This lab was ordered by [facility] and reported by [employer]. ID Date Data Source [id number] 08/24/2020 01:52:00 PM EST [facility] ([facility]) Name Value Range Interpretation Code Description Data Jessica rce(s) Supporting Document(s) Carcinoembryonic Ag [Mass/volume] in Serum or Plasma Laboratory nahid t result [facility] ([facility]) THE CEA ASSAY IS PERFORMED ON THE [employer] BY CHEMILUMINESCENCE AND SHOULD NOT BE COMPARED INTERCHANGEABLY WITH OTHER METHODS. IT SHOULD NOT BE USED ALONE A SCREENING TEST OR DIAGNOSIS FOR THE PRESENCE OR ABSENCE OF MALIGNANT DISEASE. PREDICTIONS OF DISEASE RECURRENCE SHOULD NOT BE BASED SOLELY ON VALUES OBTAINED FROM SERIAL PATIENT SERUM VALUES. ID Date Data Source [id number] 08/24/2020 01:52:00 PM EST [facility] ([facility]) Name Value Range Interpretation Code Description Data Jessica rce(s) Supporting Document(s) Thyrotropin [Units/volume] in Serum or Plasma by Detec tion limit <= 0.05 mIU/L 0.70 uIU/mL 0.36-3.74 [facility] ([facility] ) ID Date Data Source [id number] 08/24/2020 01:52:00 PM EST [facility] ([facility]) Name Value Range Interpretation Code Description Data Jessica rce(s) Supporting Document(s) Cholesterol [Mass/volume] in Serum or Plasma 199 mg/dL 131-200 [facility] ([facility]) Triglyceride [Mass/volume] in Serum or Plasma 119 mg/dL 30-150 [facility] ([facility]) Cholesterol in HDL [Mass/volume] in Serum or Plasma 52 mg/dL 35-60 [facility] ([facility]) Cholesterol in LDL [Mass/volume] in Serum or Plasma by calcu lation 123 CALC 50-159 [facility] ([facility]) ID Date Data Source [id number] 08/24/2020 01:52:00 PM EST [facility] ([facility]) Name Value Range Interpretation Code Description Data Jessica rce(s) Supporting Document(s) Glucose [Mass/volume] in Serum or Plasma 93 mg/dL 74-99 [facility] ([facility]) 100-125 mg/dL PRE-DIABETES/FASTING >126 mg/dL DIABETES/FASTING Urea nitrogen [Mass/volume] in Serum or Plasma 8 mg/dL 7-18 [facility] ([facility]) Sodium [Moles/volume] in Serum or Plasma 140 meq/L 136-145 [facility] ([facility]) Creatinine 0.9 mg/dL 0.6-1.3 [facility] ([facility]) Potassium [Moles/volume] in Serum or Plasma 3.6 meq/L 3.5-5.1 [facility] ([facility]) Chloride [Moles/volume] in Serum or Plasma 103 meq/L 98-107 [facility] ([facility]) Carbon dioxide, total [Moles/volume] in Serum or Plasma 29 meq/L 21 -32 [facility] ([facility]) Total Bilirubin 0.5 mg/dL 0.2-1.0 [facility] ([facility]) Calcium [Mass/volume] in Serum or Plasma 8.9 mg/dL 8.5-10.1 [facility] ([facility]) Alkaline phosphatase isoenzyme [Units/volume] in Serum or Pl asma 82 mg/dL 46-116 [facility] ([facility]) Aspartate aminotransferase [Enzymatic activity/volume] in Serum or Plasma 14 U/L 15-37 [facility] ([facility] ) Alanine aminotransferase [Enzymatic activity/volume] in Seru m or Plasma 25 U/L 12-78 [facility] Albumin [Mass/volume] in Serum or Plasma 3.8 g/dL 3.4-5.0 [facility] [facility] Glomerular filtration rate/1.73 sq M pre dicted among non-blacks [Volume Rate/Area] in Serum or Plasma by Creatinine-based formula (MDRD) Laboratory test result [place] ([facility] ) Proteinase 3 Ab [Units/volume] in Serum 7.6 g/dL 6.4-8.2 [place] [facility] A/G Ratio 1.00 CALC 1.00-1.90 [facility] ([facility]) Glomerular filtration rate/1.73 sq M pre dicted among blacks [Volume Rate/Area] in Serum or Plasma by Creatinine-based formula (MDRD) Laboratory test result [facility] ([facility]) <content>CHRONIC KIDNEY DISEASE STAGING PER NKF</content>
<content></content>
<content>STAGE I & II GFR >= 60 NORMAL TO MILDLY DECREASED</content>
<content>STAGE III GFR 30-59 MODERATELY DECREASED</content>
<content>STAGE IV GFR 15-29 SEVERELY DECREASED</content>
<content>STAGE V GFR <15 VERY LITTLE GFR LEFT</content>
<content>ESRD GFR <15 ON DESK CLERK</content>
<content></content> ID Date Data Source [id number] 02/12/2020 11:47:00 AM EDT [facility] Name Value Range Interpretation Code Description Data Jessica rce(s) Supporting Document(s) Thyrotropin [Units/volume] in Serum or Plasma by Detec tion limit <= 0.05 mIU/L 1.35 uIU/mL 0.36-3.74 [facility] ([facility] ) ID Date Data Source [id number] 02/12/2020 11:47:00 AM EDT [facility] Name Value Range Interpretation Code Description Data Jessica rce(s) Supporting Document(s) Cholesterol in HDL [Mass/volume] in Serum or Plasma 46 mg/dL 35-60 [facility] ([facility]) Cholesterol [Mass/volume] in Serum or Plasma 204 mg/dL 131-200 [facility] ([facility]) Triglyceride [Mass/volume] in Serum or Plasma 137 mg/dL 30-150 [facility] ([facility]) Cholesterol in LDL [Mass/volume] in Serum or Plasma by calcu lation 131 CALC 50-159 [facility] ([facility]) ID Date Data Source [id number] 02/12/2020 11:47:00 AM EDT [facility] ([facility]) Name Value Range Interpretation Code Description Data Jessica rce(s) Supporting Document(s) Glucose [Mass/volume] in Serum or Plasma 81 mg/dL 74-99 [facility] ([facility]) 100-125 mg/dL PRE-DIABETES/FASTING >126 mg/dL DIABETES/FASTING Urea nitrogen [Mass/volume] in Serum or Plasma 10 mg/dL 7-18 [facility] ([facility]) Creatinine 0.8 mg/dL 0.6-1.3 [facility] Chloride [Moles/volume] in Serum or Plasma 104 meq/L 98-107 [facility] ([facility]) Sodium [Moles/volume] in Serum or Plasma 141 meq/L 136-145 [facility] ([facility]) Potassium [Moles/volume] in Serum or Plasma 3.8 meq/L 3.5-5.1 [facility] ([facility]) Carbon dioxide, total [Moles/volume] in Serum or Plasma 31 meq/L 21 -32 [facility] ([facility]) Alkaline phosphatase isoenzyme [Units/volume] in Serum or Pl asma 83 mg/dL 46-116 [facility] ([facility]) Calcium [Mass/volume] in Serum or Plasma 8.9 mg/dL 8.5-10.1 [facility] ([facility]) Aspartate aminotransferase [Enzymatic activity/volume] in Serum or Plasma 18 U/L 15-37 [facility] ([facility] ) Alanine aminotransferase [Enzymatic activity/volume] in Seru m or Plasma 26 U/L 12-78 [facility] ([facility]) Total Bilirubin 0.4 mg/dL 0.2-1.0 [facility] ([facility]) A/G Ratio 1.09 CALC 1.00-1.90 [place] [facility] [facility] Albumin [Mass/volume] in Serum or Plasma 3.7 g/dL 3.4-5.0 [place] ([facility]) Proteinase 3 Ab [Units/volume] in Serum 7.1 g/dL 6.4-8.2 [facility] ([facility]) Glomerular filtration rate/1.73 sq M pre dicted among non-blacks [Volume Rate/Area] in Serum or Plasma by Creatinine-based formula (MDRD) Laboratory test result [facility] ([facility] ) Glomerular filtration rate/1.73 sq M pre dicted among blacks [Volume Rate/Area] in Serum or Plasma by Creatinine-based formula (MDRD) Laboratory test result [facility] ([facility]) <content>CHRONIC KIDNEY DISEASE STAGING PER NKF</content>
<content></content>
<content>STAGE I & II GFR >= 60 NORMAL TO MILDLY DECREASED</content>
<content>STAGE III GFR 30-59 MODERATELY DECREASED</content>
<content>STAGE IV GFR 15-29 SEVERELY DECREASED</content>
<content>STAGE V GFR <15 VERY LITTLE GFR LEFT</content>
<content>ESRD GFR <15 ON DESK CLERK</content>
<content></content> ID Date Data Source [id number] 02/12/2020 11:47:00 AM EDT [place] ([facility]) Name Value Range Interpretation Code Description Data Jessica rce(s) Supporting Document(s) Hematocrit [Volume Fraction] of Blood by Automated count 38.7 % 3 7.0-51.0 [place] ([facility]) Erythrocytes [#/volume] in Blood by Automated count 4.51 x10*6/UL 4.2 0-6.30 [facility] ([facility]) Leukocytes [#/volume] in Blood by Automated count 5.9 x10*3/UL 4.1-10 .9 [facility] ([facility]) Hemoglobin [Mass/volume] in Blood 12.9 g/dL 12.0-18.0 [facility] ([facility]) MCV 85.8 fL 80.0-97.0 [facility] ([facility]) MCH 28.7 pg 26.0-32.0 [facility] ([facility]) MPV 8.8 FL 7.8-11.0 [facility] ([facility]) Erythrocyte distribution width [Ratio] by Automated count 12.3 % 11.6-13.7 [facility] [facility] Platelets [#/volume] in Blood by Automated count 324 x10*3/UL 140-440 [facility] ([facility]) MCHC 33.4 g/dL 31.0-38.0 [facility] ([facility]) Neut % 52.8 % 37.0-92.0 [facility] ([facility]) Mid % 8.5 % 1.7-9.3 [facility] ([facility]) Lymph % 38.7 % 10.0-58.5 [facility] ([facility]) Lymph # 2.2 x10*3/UL 0.6-4.1 [facility] ([facility]) Neut # 3.1 x10*3/UL 2.0-7.8 [facility] ([facility]) Mid # 0.6 x10*3/UL 0.1-0.6 [facility] [facility] ID Date Data Source [id number] 08/18/2019 10:20:00 AM EST [facility] ([facility]) Name Value Range Interpretation Code Description Data Jessica rce(s) Supporting Document(s) Carcinoembryonic Ag [Mass/volume] in Serum or Plasma 0.7 ng/mL [facility] ([facility]) THE CEA ASSAY IS PERFORMED ON THE [employer] BY CHEMILUMINESCENCE AND SHOULD NOT BE COMPARED INTERCHANGEABLY WITH OTHER METHODS. IT SHOULD NOT BE USED ALONE A SCREENING TEST OR DIAGNOSIS FOR THE PRESENCE OR ABSENCE OF MALIGNANT DISEASE. PREDICTIONS OF DISEASE RECURRENCE SHOULD NOT BE BASED SOLELY ON VALUES OBTAINED FROM SERIAL PATIENT SERUM VALUES. ID Date Data Source [id number] 08/18/2019 10:19:00 AM EST [facility] ([facility]) Name Value Range Interpretation Code Description Data Jessica rce(s) Supporting Document(s) Thyrotropin [Units/volume] in Serum or Plasma by Detec tion limit <= 0.05 mIU/L 1.85 uIU/mL 0.36-3.74 [facility] ([facility] ) ID Date Data Source [id number] 08/18/2019 10:19:00 AM EST [facility] ([facility]) Name Value Range Interpretation Code Description Data Jessica rce(s) Supporting Document(s) Cholesterol [Mass/volume] in Serum or Plasma 246 mg/dL 131-200 [facility] ([facility]) Triglyceride [Mass/volume] in Serum or Plasma 164 mg/dL 30-150 [facility] ([facility]) Cholesterol in LDL [Mass/volume] in Serum or Plasma by calcu lation 162 CALC 50-159 [facility] ([facility]) Cholesterol in HDL [Mass/volume] in Serum or Plasma 51 mg/dL 35-60 [facility] ([facility]) ID Date Data Source [id number] 08/18/2019 10:19:00 AM EST [facility] ([facility]) Name Value Range Interpretation Code Description Data Jessica rce(s) Supporting Document(s) Glucose [Mass/volume] in Serum or Plasma 78 mg/dL 74-99 [facility] ([facility]) 100-125 mg/dL PRE-DIABETES/FASTING >126 mg/dL DIABETES/FASTING Potassium [Moles/volume] in Serum or Plasma 3.6 meq/L 3.5-5.1 [facility] ([facility]) Creatinine 0.9 mg/dL 0.6-1.3 [facility] [facility] Sodium [Moles/volume] in Serum or Plasma 141 meq/L 136-145 [facility] ([facility]) Urea nitrogen [Mass/volume] in Serum or Plasma 10 mg/dL 7-18 [facility] ([facility]) Carbon dioxide, total [Moles/volume] in Serum or Plasma 26 meq/L 21 -32 [facility] ([facility]) Chloride [Moles/volume] in Serum or Plasma 102 meq/L 98-107 [facility] ([facility]) Calcium [Mass/volume] in Serum or Plasma 9.8 mg/dL 8.5-10.1 [facility] ([facility]) Aspartate aminotransferase [Enzymatic activity/volume] in Serum or Plasma 26 U/L 15-37 [facility] ([facility] ) Alkaline phosphatase isoenzyme [Units/volume] in Serum or Pl asma 92 mg/dL 46-116 [facility] ([facility]) Total Bilirubin 0.3 mg/dL 0.2-1.0 [facility] ([facility]) Alanine aminotransferase [Enzymatic activity/volume] in Seru m or Plasma 44 U/L 12-78 [facility] ([facility]) Albumin [Mass/volume] in Serum or Plasma 3.8 g/dL 3.4-5.0 [facility] ([facility]) Proteinase 3 Ab [Units/volume] in Serum 7.5 g/dL 6.4-8.2 [facility] ([facility]) A/G Ratio 1.03 CALC 1.00-1.90 [facility]) Glomerular filtration rate/1.73 sq M pre dicted among blacks [Volume Rate/Area] in Serum or Plasma by Creatinine-based formula (MDRD) Laboratory test result [facility] ([facility]) <content>CHRONIC KIDNEY DISEASE STAGING PER NKF</content>
<content></content>
<content>STAGE I & II GFR >= 60 NORMAL TO MILDLY DECREASED</content>
<content>STAGE III GFR 30-59 MODERATELY DECREASED</content>
<content>STAGE IV GFR 15-29 SEVERELY DECREASED</content>
<content>STAGE V GFR <15 VERY LITTLE GFR LEFT</content>
<content>ESRD GFR <15 ON DESK CLERK</content>
<content></content> Glomerular filtration rate/1.73 sq M pre dicted among non-blacks [Volume Rate/Area] in Serum or Plasma by Creatinine-based formula (MDRD) Laboratory test result [facility] ([facility] ) ID Date Data Source [id number] 08/18/2019 08:31:00 AM EST [facility]) Name Value Range Interpretation Code Description Data Jessica rce(s) Supporting Document(s) Hearing Evaluation Laboratory test result [facility] ([facility]) Procedure Vital Signs ID Date Data Source UNK Name Value Range Interpretation Code Description Data Source(s) Body mass index (BMI) [Ratio] 34.5 kg/m2 34.5 k g/m2 [facility] ([facility]) Oxygen saturation in Arterial blood by Pulse oximetry 98 % 98 % [facility] ([facility]) Body weight 220.00 [lb_av] 220.00 [lb_av] [facility] ([facility]) Body height 67 [in_i] 67 [in_i] [facility] ([facility]) 5'7" Heart rate 88 /min 88 /min [facility] ([facility]) Diastolic blood pressure 84 mm[Hg] 84 mm[Hg] [facility] ([facility]) Systolic blood pressure 142 mm[Hg] 142 mm[Hg] [facility] ([facility]) Body mass index (BMI) [Ratio] 34.5 kg/m2 34.5 k g/m2 [facility] ([facility]) Body weight 220.00 [lb_av] 220.00 [lb_av] [facility] ([facility]) Body height 67 [in_i] 67 [in_i] [facility] ([facility]) 5'7" Heart rate 68 /min 68 /min [facility] ([facility]) Diastolic blood pressure 70 mm[Hg] 70 mm[Hg] [facility] ([facility]) Systolic blood pressure 124 mm[Hg] 124 mm[Hg] [facility] ([facility]) Body mass index (BMI) [Ratio] 35.1 kg/m2 35.1 k g/m2 [facility] ([facility]) Body weight 224.00 [lb_av] 224.00 [lb_av] [facility] Body height 67 [in_i] 67 [in_i] [facility] ([facility]) 5'7" Heart rate 70 /min 70 /min [facility] ([facility]) Diastolic blood pressure 76 mm[Hg] 76 mm[Hg] [facility] ([facility]) Systolic blood pressure 122 mm[Hg] 122 mm[Hg] [facility] ([facility]) Body mass index (BMI) [Ratio] 34.6 kg/m2 34.6 k g/m2 [facility]) Body height 67 [in_i] 67 [in_i] [facility] ([facility], [facility]) 5'7" Body weight 221.00 [lb_av] 221.00 [lb_av] [facility] ([facility], [facility]) Oxygen saturation in Arterial blood by Pulse oximetry 97 % 97 % [facility] ([facility], [facility]) Respiratory rate 14 /min 14 /min [facility] ( [facility], [facility]) Heart rate 79 /min 79 /min [facility] ([facility], [facility]) Diastolic blood pressure 85 mm[Hg] 85 mm[Hg] [facility] ([facility], [facility]) Systolic blood pressure 145 mm[Hg] 145 mm[Hg] [facility] ([facility], [facility]) Body mass index (BMI) [Ratio] 34.6 kg/m2 34.6 k g/m2 [facility] ([facility]) Body weight 221.00 [lb_av] 221.00 [lb_av] [facility] ([facility]) Body height 67 [in_i] 67 [in_i] [facility] ([facility]) 5'7" Heart rate 72 /min 72 /min [facility] ([facility]) Diastolic blood pressure 74 mm[Hg] 74 mm[Hg] [facility] ([facility]) Systolic blood pressure 130 mm[Hg] 130 mm[Hg] [facility] ([facility]) Body weight 211.00 [lb_av] 211.00 [lb_av] [facility] ([facility], ) Body height 67 [in_i] 67 [in_i] [facility] ([facility], ) 5'7" Body weight 95.710 kg 95.710 kg [facility] ([facility], ) Body mass index (BMI) [Ratio] 33.0 kg/m2 33.0 k g/m2 [facility] ([facility], ) Body mass index (BMI) [Ratio] 33.7 kg/m2 33.7 k g/m2 [facility] ([facility], [facility]) Body height 67 [in_i] 67 [in_i] [facility] ([facility]) 5'7" Body weight 215.00 [lb_av] 215.00 [lb_av] [facility] ([facility], [facility]) Body temperature 98.0 [degF] 98.0 [degF] [facility] ([facility], [facility]) Oxygen saturation in Arterial blood by Pulse oximetry 98 % 98 % [facility] ([facility], [facility]) Respiratory rate 16 /min 16 /min [facility] ( [facility], [facility]) Heart rate 69 /min 69 /min [facility] ([facility], [facility]) Diastolic blood pressure 81 mm[Hg] 81 mm[Hg] [facility] ([facility]) Systolic blood pressure 122 mm[Hg] 122 mm[Hg] [facility] ([facility], [facility]) Body mass index (BMI) [Ratio] 35.1 kg/m2 35.1 k g/m2 [facility] ([facility]) Oxygen saturation in Arterial blood by Pulse oximetry 97 % 97 % [facility] ([facility]) Air Body weight 224.00 [lb_av] 224.00 [lb_av] [facility] ([facility]) Body height 67 [in_i] 67 [in_i] [facility] ([facility]) 5'7" Heart rate 82 /min 82 /min [facility] ([facility]) Diastolic blood pressure 70 mm[Hg] 70 mm[Hg] [facility] ([facility]) Systolic blood pressure 132 mm[Hg] 132 mm[Hg] [facility] ([facility])
[2020-10-12 19:11] VITALS: BP 153/70
--- NOTE | 2020-10-12 20:48 | ECGEPIP ---
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
== END 2020-10-12 19:13 | disposition home or self-care (01) ==
LOC: M ED 14:11
DX: F41.9 Anxiety disorder, unspecified (principal); F33.9 Major depressive disorder, recurrent, unspecified; Z79.899 Other long term (current) drug therapy; Z88.1 Allergy status to other antibiotic agents; Z88.2 Allergy status to sulfonamides; Z88.5 Allergy status to narcotic agent

== ENCOUNTER → 2020-11-01 | Outpatient (REF) | payer BC | LOC: M LAB REF 16:14 | PROVIDERS: ATTEND Family Medicine | DX: R20.2 Paresthesia of skin (principal); M62.81 Muscle weakness (generalized) ==

== ENCOUNTER 2020-12-05 18:54 | Emergency (ER) | payer BC ==
[~2020-12-05] VITALS: Ht 170.2 cm; Wt 100.7 kg
[2020-12-05 21:12] LABS: BASO % 0.1 % (0.0-1.0); EOS % 0.5 % (0.0-3.0); HEMATOCRIT 43.2 % (36.0-47.0); LYMPH # 2.2 10^3/uL (1.5-5.0); LYMPH % 25.6 % (24.0-44.0); MEAN CORPUSCULAR HEMOGLOBIN 28.9 pg (27.0-33.0); MEAN CORPUSCULAR HGB CONC 32.4 g/dl (32.0-36.5); MEAN CORPUSCULAR VOLUME 89.3 fl (80.0-96.0); MONO # 0.7 10^3/uL (0.0-0.8); MONO % 8.8 % (2.0-8.0); NEUTROPHILS # 5.5 10^3/uL (1.5-8.5); NEUTROPHILS % 64.6 % (36.0-66.0); PLATELET COUNT, AUTOMATED 346 10^3/uL (150-450); RED BLOOD COUNT 4.84 10^6/uL (4.00-5.40); WHITE BLOOD COUNT 8.5 10^3/uL (4.0-10.0)
--- NOTE | 2020-12-05 21:19 | REPVR ---
PROCEDURE INFORMATION: Exam: XR Chest Exam date and time: 12/05/2020 9:07 PM Age: 45 years old Clinical indication: Chest pain; Type not specified TECHNIQUE: Imaging protocol: XR of the chest Views: 1 view. COMPARISON: [facility] PORT[facility] CHEST [facility] 10/07/2020 1:05 PM FINDINGS: Lungs: Unremarkable. No consolidation. Pleural spaces: Unremarkable. No pleural effusion. No pneumothorax. Heart/Mediastinum: Unremarkable. No cardiomegaly. Bones/joints: Unremarkable. IMPRESSION: No acute findings. Electronically signed by: Kaleb Castellanos On 12/05/2020 21:19:34 PM
[2020-12-05 21:25] LABS: INR 0.88; PROTHROMBIN TIME 12.1 SECONDS (12.5-14.3)
[2020-12-05 21:26] LABS: PARTIAL THROMBOPLASTIN TIME 30.1 SECONDS (24.2-38.5)
[2020-12-05 21:48] LABS: ALBUMIN 3.8 GM/DL (3.2-5.2); ALT/SGPT 21 U/L (12-78); BILIRUBIN,DIRECT < 0.1 MG/DL (0.0-0.2); BILIRUBIN,TOTAL 0.2 MG/DL (0.2-1.0); BLOOD UREA NITROGEN 8 MG/DL (7-18); CALCIUM LEVEL 9.6 MG/DL (8.5-10.1); CARBON DIOXIDE LEVEL 28 MEQ/L (21-32); CHLORIDE LEVEL 106 MEQ/L (98-107); CK-MB VALUE MASS < 1.0 NG/ML (<3.6); CPK CREATINE PHOSPHOKINASE 33 U/L (26-192); CREATININE FOR GFR 0.86 MG/DL (0.55-1.30); FREE T4 0.83 NG/DL (0.76-1.46); GLOMERULAR FILTRATION RATE > 60.0 (>58); GLUCOSE, FASTING 93 MG/DL (70-100); LIPASE 63 U/L (73-393); MAGNESIUM LEVEL 2.3 MG/DL (1.8-2.4); MB/CK RELATIVE INDEX 3.03 (< OR =4); NT-PRO BNP 23 PG/ML (<125); POTASSIUM SERUM 4.1 MEQ/L (3.5-5.1); SODIUM LEVEL 138 MEQ/L (136-145); THYROID STIMULATING HORMONE 0.816 uIU/ML (0.358-3.740); TOTAL PROTEIN 7.6 GM/DL (6.4-8.2); TROPONIN I < 0.02 NG/ML (< 0.10)
--- NOTE | 2020-12-05 22:23 | ECGEPIP ---
[facility] - ED Test Date: 2020-12-05 Pat Name: MARIMAR FLYNN Department: Room: - Gender: Female [place] Consultant: Erin CRUZ : 1975 Requested By: MICHOACANO DIAZ Order Number: [id number] Reading MD: [place] Measurements Intervals [place] Rate: 84 P: 47 [place]: 148 QRS: -6 QRSD: 90 T: 24 QT: 382 QTc: 451 Interpretive Statements Normal sinus rhythm Delayed anterior R wave progression Similar to tracing done 10-12-20 Electronically Signed on 12-05-2020 22:23:09 EDT by [place]
[2020-12-05 22:43] VITALS: BP 138/65
== END 2020-12-05 23:03 | disposition home or self-care (01) ==
LOC: M ED 18:54
DX: R07.89 Other chest pain (principal); E78.5 Hyperlipidemia, unspecified; Z79.899 Other long term (current) drug therapy; Z88.2 Allergy status to sulfonamides; Z88.1 Allergy status to other antibiotic agents; Z88.5 Allergy status to narcotic agent

== ENCOUNTER → 2020-12-28 | Outpatient (CLI) | payer BC ==
[2020-12-28 16:07] LABS: HEMOGLOBIN A1c 5.1 %
[2020-12-28 16:08] LABS: BLOOD UREA NITROGEN 10 MG/DL (7-18); FREE THYROXINE INDEX 2.2 % (1.3-4.8); RHEUMATOID FACTOR QUANT < 10.0 IU/ML (<15.0); T UPTAKE 33 % (30-39); THYROID STIMULATING HORMONE 0.955 uIU/ML (0.358-3.740); THYROXINE (T4) 6.7 UG/DL (4.5-12.0)
[2020-12-28 16:10] LABS: VITAMIN B12 LEVEL 347 PG/ML
[2020-12-28 16:11] LABS: FOLATE 7.6 NG/ML
[2020-12-29 13:31] LABS: ALBUMIN 4.04 GM/DL (3.29-5.55); ALBUMIN % 57.7 % (55.8-66.1); ALPHA-1-GLOBULIN % 4.5 % (2.9-4.9); ALPHA-1-GLOBULINS 0.32 GM/DL (0.17-0.41); ALPHA-2-GLOBULINS 0.78 GM/DL (0.42-0.99); ALPHA-2-GLOBULINS % 11.2 % (7.1-11.8); BETA-1-GLOBULINS 0.44 GM/DL (0.28-0.60); BETA-1-GLOBULINS % 6.3 % (4.7-7.2); BETA-2-GLOBULINS 0.36 GM/DL (0.19-0.55); BETA-2-GLOBULINS % 5.2 % (3.2-6.5); GAMMA GLOBULIN % 15.1 % (11.1-18.8); GAMMA GLOBULINS 1.06 GM/DL (0.65-1.58)
== END ==
LOC: M WUC 13:53
PROVIDERS: ATTEND Psychiatry & Neurology Neurology
DX: R20.0 Anesthesia of skin (principal); R53.1 Weakness; E11.9 Type 2 diabetes mellitus without complications; R26.81 Unsteadiness on feet

== ENCOUNTER → 2021-01-04 | Outpatient (CLI) | payer BC | LOC: M WUC 14:16 | PROVIDERS: ATTEND Psychiatry & Neurology Neurology | DX: R53.1 Weakness (principal); R25.1 Tremor, unspecified ==

== ENCOUNTER → 2021-03-15 | Outpatient (CLI) | payer BC ==
--- NOTE | 2021-03-15 11:15 | REP ---
INDICATION: THYROID NODULE. COMPARISON: 02/07/2009 TECHNIQUE: Bilateral thyroid ultrasound with Doppler FINDINGS: The right lobe of the thyroid gland measures 4.5 x 1.8 x 1.2 cm and the left lobe measures 4.4 x 1.3 x 1 cm. The isthmus measures 2.5 mm. In the lower pole right lobe there is a stable 7 mm size nodule. Two small nodules have developed in the midpole region 1 measures 6 mm and the other 3 mm. In the superior pole of left lobe a new complex nodule has developed which measures 1.2 x 0.7 x 0.9 cm. A tiny cyst has also developed in the inferior pole which measures 3 mm IMPRESSION: Development of a complex nodule seen in the superior pole region left lobe as described above. Additional surveillance is recommended. Other findings as described above. <Electronically signed by Darius Galindo > 03/15/21 1111
== END ==
LOC: M RAD 10:41
PROVIDERS: ATTEND Family Medicine
DX: E04.1 Nontoxic single thyroid nodule (principal)

== ENCOUNTER → 2021-11-30 | Outpatient (REF) | payer BC | LOC: M LAB REF 16:16 | PROVIDERS: ATTEND Family Medicine | DX: Z85.038 Personal history of other malignant neoplasm of large intestine (principal) ==

== ENCOUNTER → 2022-07-02 | Outpatient (CLI) | payer BC | LOC: M WHC 13:08 | PROVIDERS: ATTEND Family Medicine | DX: Z12.31 Encounter for screening mammogram for malignant neoplasm of breast (principal) ==

== ENCOUNTER → 2022-10-29 | Outpatient (REF) | payer OTHER, BC | LOC: M LAB REF 16:20 | PROVIDERS: ATTEND Family Medicine | DX: Z85.038 Personal history of other malignant neoplasm of large intestine (principal) ==

== ENCOUNTER → 2023-02-22 | Outpatient (REF) | payer OTHER, BC | LOC: M LAB REF 12:15 | PROVIDERS: ATTEND Family Medicine | DX: Z85.038 Personal history of other malignant neoplasm of large intestine (principal) ==

== ENCOUNTER 2023-04-04 07:53 | Day surgery (SDC) | payer OTHER ==
[~2023-04-04] VITALS: Ht 170.2 cm; Wt 108.8 kg
[~2023-04-04 07:53] MED LIST changes: +FAMO40TA3 PO; +LIDOCAINE 2% 100MG/5ML SDV (FOR ANES.) As Ordered ONE; +MULT-90 PO; +NS 1,000 ML IV ONE; +SERT50TA29 PO; +VITA100093 PO; +propofoL 200 MG/20 ML VIAL As Ordered ONE
[2023-04-04 09:04] VITALS: TEMP 96.6
[2023-04-04 09:16] VITALS: BP 127/65; O2SAT 96
== END 2023-04-04 09:24 | disposition home or self-care (01) ==
LOC: M OPP 07:53
PROVIDERS: ATTEND Surgery
DX: Z12.11 Encounter for screening for malignant neoplasm of colon (principal); Z85.038 Personal history of other malignant neoplasm of large intestine; Z79.1 Long term (current) use of non-steroidal anti-inflammatories (NSAID); Z79.899 Other long term (current) drug therapy; Z88.1 Allergy status to other antibiotic agents; Z88.2 Allergy status to sulfonamides; Z88.5 Allergy status to narcotic agent

== ENCOUNTER → 2023-08-23 | Outpatient (REF) | payer OTHER ==
[~2023-08-23] MED LIST changes: -LIDOCAINE 2% 100MG/5ML SDV (FOR ANES.) As Ordered ONE; -NS 1,000 ML IV ONE; -propofoL 200 MG/20 ML VIAL As Ordered ONE
== END ==
LOC: M LAB REF 16:13
PROVIDERS: ATTEND Family Medicine
DX: Z85.038 Personal history of other malignant neoplasm of large intestine (principal)

== ENCOUNTER → 2024-03-05 | Outpatient (REF) | payer OTHER ==
[2024-03-07 12:28] LABS: HPV APTIMA Not Detected (Not Detected)
== END ==
LOC: M SFHCWAGY 15:02
PROVIDERS: ATTEND Nurse Practitioner Family
DX: Z12.4 Encounter for screening for malignant neoplasm of cervix (principal); R87.610 Atypical squamous cells of undetermined significance on cytologic smear of cervix (ASC-US); N84.1 Polyp of cervix uteri
CPT/HCPCS: 87624; 88305; G0123

== ENCOUNTER → 2024-03-05 | Outpatient (CLI) | payer OTHER | LOC: M WHC 12:59 | PROVIDERS: ATTEND Nurse Practitioner Family | DX: Z12.31 Encounter for screening mammogram for malignant neoplasm of breast (principal) ==

== ENCOUNTER → 2024-09-02 | Outpatient (REF) | payer OTHER | LOC: M LAB REF 13:04 | PROVIDERS: ATTEND Family Medicine | DX: Z85.038 Personal history of other malignant neoplasm of large intestine (principal) ==

== ENCOUNTER → 2025-02-05 | Outpatient (CLI) | payer OTHER ==
[~2025-02-05] MED LIST changes: -AMBI10TA PO; +ZOLP-533 PO
== END ==
LOC: M PLARAD 07:46
PROVIDERS: ATTEND Family Medicine
DX: R20.8 Other disturbances of skin sensation (principal)

== ENCOUNTER → 2025-06-14 | Outpatient (CLI) | payer OTHER | LOC: M RAD 13:14 | PROVIDERS: ATTEND Nurse Practitioner Family | DX: E04.2 Nontoxic multinodular goiter (principal) ==

== ENCOUNTER → 2025-06-17 | Outpatient (REF) | payer OTHER ==
[2025-06-17 15:35] LABS: IRON (FE) 82 UG/DL (50-170); PERCENT SATURATION 26.0 % (13.2-45.0)
[2025-06-17 15:37] LABS: VITAMIN B12 LEVEL 318 PG/ML (211-911)
== END ==
LOC: M LAB REF 14:43
PROVIDERS: ATTEND Family Medicine
DX: R20.8 Other disturbances of skin sensation (principal); Z85.038 Personal history of other malignant neoplasm of large intestine

== ENCOUNTER → 2025-08-10 | Outpatient (CLI) | payer OTHER | LOC: M WHC 13:50 | PROVIDERS: ATTEND Nurse Practitioner Family | DX: Z12.31 Encounter for screening mammogram for malignant neoplasm of breast (principal) ==